=== PATIENT | male | born 1980 | race Hispanic/Latino ===

== ENCOUNTER 2020-02-26 05:45 | Inpatient (IN) | payer SELFPAY ==
[~2020-02-26] VITALS: Ht 170.2 cm; Wt 126.8 kg
[~2020-02-26 05:45] MED LIST: CIPR-1 PO; PRAV20TA4 PO
[2020-02-26] MEDS ORDERED: ZOSYN 3.375GM+NS 50ML 50 ML IV ONE (06:06)
[2020-02-26] MEDS ORDERED: VANCOMYCIN 1GM+NS 250ML 250 ML IV ONE (06:06)
[2020-02-26] MEDS ORDERED: MORPHINE SULFATE 4 MG/1ML SYG ONE (06:13)
[2020-02-26 06:15] LABS: BASOPHILS % (AUTO) 0.2 % (0.0-5.0); HEMATOCRIT 48.8 % (42-54); LYMPHOCYTES % (AUTO) 6.5 % (21.0-51.0); MEAN CORPUSCULAR HEMOGLOBIN 28.5 pg (27.0-33.0); MEAN CORPUSCULAR HGB CONC 34.6 g/dL (32.0-36.0); MEAN CORPUSCULAR VOLUME 82.2 fL (79-99); MONOCYTES % (AUTO) 4.7 % (3.0-13.0); NEUTROPHILS % (AUTO) 88.2 % (40.0-77.0); PLATELET COUNT (AUTO) 342 K/uL (130-400); RED BLOOD CELL COUNT(AUTO) 5.94 MIL/uL (4.50-6.20); RED CELL DISTRIBUTION WIDTH 12.6 % (11.0-15.5); WHITE BLOOD COUNT (AUTO) 27.5 K/uL (4.8-10.8)
[2020-02-26 06:35] LABS: ALBUMIN 3.4 g/dL (3.5-5.0); BILIRUBIN,TOTAL 1.5 mg/dL (0.2-1.0); POTASSIUM 3.7 mmol/L (3.5-5.1); TOTAL PROTEIN, SERUM 9.2 g/dL (6.0-8.3)
[2020-02-26 06:44] LABS: INR 0.9 (0.85-1.15); PARTIAL THROMBOPLASTIN TIME 28.2 SEC (26.3-35.5); PROTHROMBIN TIME 9.8 SEC (9.6-11.6)
[2020-02-26] MEDS ORDERED: INSULIN HUMULIN R 100 UNIT/ML 3ML ONE (06:45)
[2020-02-26] MEDS ORDERED: KETOROLAC TROMETHAMINE 30MG/ML ONE (09:08)
[2020-02-26] MEDS ORDERED: MORPHINE SULFATE 2 MG/ML 1ML SYG IV PRN (10:00)
[2020-02-26] MEDS ORDERED: LACTATED RINGERS 1000ML IV SCH (10:15)
[2020-02-26] MEDS ORDERED: HYDRALAZINE HCL 20 MG/ML VIAL IM PRN (10:15)
[2020-02-26] MEDS ORDERED: VANCOMYCIN PROTOCOL PER PHARMACY IV SCH (10:45)
[2020-02-26] MEDS ORDERED: PHARMACY COMMUNICATION MISC SCH (10:45)
[2020-02-26 11:44] VITALS: BP 152/89
[2020-02-26] MEDS ORDERED: COMPOUND IV REFRIGERATED 1 EACH IVSOLN MISC PRN (12:00)
[2020-02-26] MEDS: HYDROMORPHONE 1 MG/1 ML AMP IV PRN ×2 (12:25→16:25)
[2020-02-26] MEDS: INSULIN HUMULIN R 100 UNIT/ML 3ML SQ SCH ×3 (12:50→20:52)
[2020-02-26] MEDS: CLINDAMYCIN 600 MG/D5% WATER 50 ML IV SCH ×2 (12:52→16:00)
[2020-02-26] MEDS: LACTATED RINGERS 1000ML 1,000 ML IV SCH (12:57)
[2020-02-26] MEDS: VANCOMYCIN 1.5 GM in SODIUM CHLORIDE 0.9% 250 ML IV SCH (13:32)
[2020-02-26 16:00] VITALS: BP 175/102
[2020-02-26] MEDS ORDERED: ACETAMINOPHEN 325 MG TAB PO PRN (16:30)
[2020-02-26] MEDS: METRONIDAZOLE 500MG/100ML BAG 100 ML IV SCH ×2 (16:34→17:46)
[2020-02-26] MEDS: CEFEPIME HCL 2 GM VIAL IVP SCH (16:59)
[2020-02-26 17:21] VITALS: BP 141/60
[2020-02-26] MEDS ORDERED: METO50TA18 PO (18:22)
[2020-02-26] MEDS ORDERED: CITA10TA7 PO (18:22)
[2020-02-26] MEDS ORDERED: METF-446 PO (18:22)
[2020-02-26] MEDS ORDERED: LOSA100T58 PO (18:22)
[2020-02-26 20:00] VITALS: BP 121/74
[2020-02-26] MEDS: FAMOTIDINE/PF 20 MG/2 ML VIAL IV SCH (20:54)
[2020-02-27] VITALS (32 sets, daily range): BP systolic 103–166; BP diastolic 62–96
[2020-02-27] MEDS: VANCOMYCIN 1.5 GM in SODIUM CHLORIDE 0.9% 250 ML IV SCH ×2 (00:28→13:04)
[2020-02-27] MEDS: METRONIDAZOLE 500MG/100ML BAG 100 ML IV SCH ×3 (02:52→17:59)
[2020-02-27 03:57] LABS: BASOPHILS % (AUTO) 0.3 % (0.0-5.0); HEMATOCRIT 44.4 % (42-54); LYMPHOCYTES % (AUTO) 10.3 % (21.0-51.0); MEAN CORPUSCULAR HEMOGLOBIN 28.3 pg (27.0-33.0); MEAN CORPUSCULAR HGB CONC 32.7 g/dL (32.0-36.0); MEAN CORPUSCULAR VOLUME 86.5 fL (79-99); MONOCYTES % (AUTO) 7.1 % (3.0-13.0); PLATELET COUNT (AUTO) 307 K/uL (130-400); RED BLOOD CELL COUNT(AUTO) 5.13 MIL/uL (4.50-6.20); RED CELL DISTRIBUTION WIDTH 12.9 % (11.0-15.5); WHITE BLOOD COUNT (AUTO) 20.6 K/uL (4.8-10.8)
[2020-02-27 04:20] LABS: ALBUMIN 2.7 g/dL (3.5-5.0); BILIRUBIN,TOTAL 1.2 mg/dL (0.2-1.0); CREATININE 0.8 mg/dL (0.5-1.5); POTASSIUM 3.6 mmol/L (3.5-5.1); TOTAL PROTEIN, SERUM 7.9 g/dL (6.0-8.3)
[2020-02-27] MEDS: HYDROMORPHONE 1 MG/1 ML AMP IV PRN ×3 (05:56→09:47)
[2020-02-27] MEDS: INSULIN HUMULIN R 100 UNIT/ML 3ML SQ SCH ×3 (08:29→16:30)
[2020-02-27] MEDS: LACTATED RINGERS 1000ML 1,000 ML IV SCH ×3 (09:03→20:28)
[2020-02-27] MEDS: LOSARTAN 100 MG TABLET PO SCH (09:15)
[2020-02-27] MEDS: CITALOPRAM 20 MG TABLET PO SCH (09:15)
[2020-02-27] MEDS: METOPROLOL TARTRATE 50 MG TAB PO SCH (09:15)
--- NOTE | 2020-02-27 09:15 | NUR ---
DR. DOZIER PAGED CALLED DR. DOZIER TO ASK ABOUT PLAN FOR PROCEDURE. MD PLACED ORDERS TO SCHEDULE PATIENT FOR TODAY. SPOKE TO GUERA CHICAS REGARDING MD ORDER.
--- NOTE | 2020-02-27 09:30 | NUR ---
METOPROLOL NON-ADMIN DID NOT ADMINISTER METOPROLOL 50MG PO DAILY BECAUSE PATIENT UNABLE TO SWALLOW DUE TO JAW PAIN AND JAW SWELLING.
[2020-02-27] MEDS: FAMOTIDINE/PF 20 MG/2 ML VIAL IV SCH ×2 (09:55→20:27)
[2020-02-27] MEDS: CEFEPIME HCL 2 GM VIAL IVP SCH (09:55)
[2020-02-27] MEDS ORDERED: KETAMINE 50MG/ML SYRINGE 50 MG/ML DISP.SYRIN IV ONE (14:58)
[2020-02-27] MEDS ORDERED: LIDOCAINE PF 2% 5ML ABBOJECT ONE (14:59)
[2020-02-27] MEDS ORDERED: SUCCINYLCHOLINE CHLORIDE 20 MG/ML 10 ML VIAL ONE (14:59)
[2020-02-27] MEDS ORDERED: PROPOFOL 10 MG/ML 20ML VIAL IV ONE (15:00)
[2020-02-27] MEDS ORDERED: FENTANYL CITRATE PF 50 MCG/1 ML 2ML VIAL ONE ×2 (15:00→15:53)
[2020-02-27] MEDS ORDERED: MIDAZOLAM HCL 1 MG/ML 2ML VIAL ONE ×2 (15:00→15:52)
[2020-02-27] MEDS ORDERED: ROCURONIUM 10MG/1ML SYR 10 MG/ML ML ONE ×2 (15:00→15:46)
[2020-02-27] MEDS ORDERED: GLYCOPYRROLATE 1 MG/5 ML SYRINGE ONE (15:13)
[2020-02-27] MEDS ORDERED: CEFAZOLIN SODIUM 1 GM VIAL ONE (15:38)
--- NOTE | 2020-02-27 16:01 | NUR ---
Chart Review; Unable to complete initial assessment. Pt is down in PACU for procedure. Contact number on facesheet incorrect as per person answering phone for listed number. Spoke w primary nurse. They do not have any other numbers listed. CM to f/u. Addendum: 02/27/20 at 1603 by PAUL GREWAL CM Amended: Links added.
[2020-02-27] MEDS ORDERED: PROPOFOL 1000 MG/100 ML 100 ML IV ONE ×4 (16:10→21:18)
[2020-02-27 20:35] LABS: ABG BASE EXCESS -6.9 mmol/L (-2.0-3.0); ABG OXYGEN SATURATION 99.2 % (95.0-99.0); ABG PCO2 34 mmHg (35-48)
--- NOTE | 2020-02-27 22:00 | NUR ---
1919 Received patient from OR recovery after report received from Anuj LOVELACE. Patient vented/sedated on Propofol drip. 2029 ABGs drawn on current vent settings. [address] to [address] Anand including labs. Orders received. Gonzalez 16fr inserted. Residual 600 mls clear, yellow urine. Clamped for 1 hour due to high residual. 2199 Serum ketones results called to Dr Anand as ordered.
[2020-02-27] MEDS: PROPOFOL 1000 MG/100 ML 100 ML IV SCH (23:34)
[2020-02-28] VITALS (38 sets, daily range): BP systolic 104–136; BP diastolic 61–89
[2020-02-28] MEDS ORDERED: INSULIN HUMULIN R 100 UNIT/ML 3ML SQ SCH
--- NOTE | 2020-02-28 00:05 | NUR ---
Spoke with hospitalist research contracts supervisor Abbe RN. Reported high glucometer results. Orders received. updated on patient status during 2 calls received yoselyn.
[2020-02-28] MEDS: VANCOMYCIN 1.5 GM in SODIUM CHLORIDE 0.9% 250 ML IV SCH (01:30)
[2020-02-28] MEDS: METRONIDAZOLE 500MG/100ML BAG 100 ML IV SCH ×2 (02:10→09:04)
[2020-02-28] MEDS: PROPOFOL 1000 MG/100 ML 100 ML IV SCH ×7 (02:10→21:22)
[2020-02-28] MEDS: INSULIN HUMULIN R 100 UNIT/ML 3ML SQ SCH ×4 (05:51→23:52)
[2020-02-28] MEDS: FENTANYL 2500MCG+NS 250ML 250 ML IV SCH ×2 (07:35→18:37)
[2020-02-28] MEDS: FAMOTIDINE/PF 20 MG/2 ML VIAL IV SCH ×2 (08:43→21:22)
[2020-02-28] MEDS: VANCOMYCIN 1.75 GM in SODIUM CHLORIDE 0.9% 250 ML IV SCH ×2 (08:43→21:23)
[2020-02-28] MEDS: CEFEPIME HCL 2 GM VIAL IVP SCH (08:43)
[2020-02-28] MEDS: METOPROLOL TARTRATE 50 MG TAB PO SCH (08:44)
[2020-02-28] MEDS: LOSARTAN 100 MG TABLET PO SCH (08:44)
[2020-02-28] MEDS: CITALOPRAM 20 MG TABLET PO SCH (08:44)
[2020-02-28] MEDS: METHYLPREDNISOLONE SOD SUCC 40MG/ML 1ML IVP SCH ×2 (13:52→21:22)
[2020-02-28] MEDS: UNASYN 3GM+NS 100ML 100 ML IV SCH ×3 (13:58→23:37)
[2020-02-28] MEDS: LACTATED RINGERS 1000ML 1,000 ML IV SCH (16:26)
--- NOTE | 2020-02-28 16:31 | NUR ---
DC PLAN PATIENT VENTED. PER NOTES NUMBERS WRONG ON FACE SHEET. CALLED NUMBER NURSE THOUGH WAS FROM SPOUSE WAS A MALE WITH DIFFERENT NAME. CALLED DR. RJOAS OFFICE GOT PERSON TO DONNA[facility] SAMI PACHECO [phone]. CALLED CONFIRMED PATIENT SPOUSE. PATIENT LIVES AT HOME WITH SPOUSE. INDEPENDENT ABLE TO PERFORM ADL'S. NO SERVICES OR DME'S. PLAN IS TO RETURN HOME. SENT INFO TO REGISTRATION TO CHANGE CONTACT NUMBER. Addendum: 02/28/20 at 1634 by ANDREWS SALAZAR RN Amended: Links added.
--- NOTE | 2020-02-28 19:30 | NUR ---
ASSESSMENT PT INTUBATED, SEDATED. IV FLUIDS INFUSING WITHOUT DIFFICULTY. VELA CATHETER TO BEDSIDE DRAINAGE. LEFT SIDE OF SWOLLEN, WITH ORAL PACKING IN PLACE. ASSESSMENT COMPLETED, SEE FLOW SHEET
[2020-02-29] VITALS (37 sets, daily range): BP systolic 108–153; BP diastolic 59–85
[2020-02-29] MEDS: PROPOFOL 1000 MG/100 ML 100 ML IV SCH ×9 (00:13→21:09)
[2020-02-29] MEDS: LACTATED RINGERS 1000ML 1,000 ML IV SCH ×2 (03:04→19:41)
[2020-02-29] MEDS: FENTANYL 2500MCG+NS 250ML 250 ML IV SCH ×3 (03:04→22:59)
[2020-02-29] MEDS: UNASYN 3GM+NS 100ML 100 ML IV SCH ×4 (05:30→23:07)
[2020-02-29 05:55] LABS: BASOPHILS % (AUTO) 0.1 % (0.0-5.0); HEMATOCRIT 45.3 % (42-54); LYMPHOCYTES % (AUTO) 3.5 % (21.0-51.0); MEAN CORPUSCULAR HEMOGLOBIN 28.7 pg (27.0-33.0); MEAN CORPUSCULAR HGB CONC 31.3 g/dL (32.0-36.0); MEAN CORPUSCULAR VOLUME 91.7 fL (79-99); MONOCYTES % (AUTO) 1.8 % (3.0-13.0); NEUTROPHILS % (AUTO) 94.1 % (40.0-77.0); PLATELET COUNT (AUTO) 328 K/uL (130-400); RED BLOOD CELL COUNT(AUTO) 4.94 MIL/uL (4.50-6.20); RED CELL DISTRIBUTION WIDTH 12.9 % (11.0-15.5); WHITE BLOOD COUNT (AUTO) 17.6 K/uL (4.8-10.8)
[2020-02-29 06:20] LABS: ALBUMIN 2.4 g/dL (3.5-5.0); BILIRUBIN,TOTAL 0.5 mg/dL (0.2-1.0); POTASSIUM 4.3 mmol/L (3.5-5.1); TOTAL PROTEIN, SERUM 7.7 g/dL (6.0-8.3)
[2020-02-29] MEDS: INSULIN HUMULIN R 100 UNIT/ML 3ML SQ SCH ×4 (06:28→23:20)
[2020-02-29] MEDS: VANCOMYCIN 1.75 GM in SODIUM CHLORIDE 0.9% 250 ML IV SCH (08:12)
[2020-02-29] MEDS: FAMOTIDINE/PF 20 MG/2 ML VIAL IV SCH ×2 (08:14→19:42)
[2020-02-29] MEDS: METHYLPREDNISOLONE SOD SUCC 40MG/ML 1ML IVP SCH ×2 (08:14→20:28)
[2020-02-29] MEDS: CITALOPRAM 20 MG TABLET PO SCH (08:14)
[2020-02-29] MEDS: LOSARTAN 100 MG TABLET PO SCH (08:15)
[2020-02-29] MEDS: METOPROLOL TARTRATE 50 MG TAB PO SCH (08:15)
[2020-02-29] MEDS ORDERED: INSULIN GLARGINE 100 UNITS/ML 10 ML VIAL SQ SCH (08:45)
--- NOTE | 2020-02-29 09:15 | NUR ---
Paged Dr De León to notify about pending consult, pending MD to return call.
--- NOTE | 2020-02-29 10:20 | NUR ---
Spoke to Mellissa at Dr Barnett's office about request of Dr Brock to have Anesthesia evaluate Larynx with a scope for swelling for possible extubation, pending MD to return call
[2020-02-29] MEDS ORDERED: ROCURONIUM 10MG/1ML SYR 10 MG/ML ML ONE (12:37)
--- NOTE | 2020-02-29 12:40 | NUR ---
GatoDISPENSARY ATTENDANT at bedside to assess patient's Larynx, as per DISPENSARY ATTENDANT swelling it's a lot less compared to 02/27/20. Dr Brock present at nurses station made aware. Dr Brock aware about Dr De León pending consult for possible extubation
--- NOTE | 2020-02-29 17:54 | NUR ---
Called office of Dr De León, no answer, was able to leave message, left patient's information and notified about pending consult, called [phone]
[2020-02-29] MEDS: VANCOMYCIN 2 GM in SODIUM CHLORIDE 0.9% 500ML 500 ML IV SCH (21:54)
[2020-03-01] VITALS (24 sets, daily range): BP systolic 129–185; BP diastolic 71–99
[2020-03-01 03:28] LABS: BASOPHILS % (AUTO) 0.1 % (0.0-5.0); HEMATOCRIT 44.8 % (42-54); LYMPHOCYTES % (AUTO) 6.1 % (21.0-51.0); MEAN CORPUSCULAR HEMOGLOBIN 28.8 pg (27.0-33.0); MEAN CORPUSCULAR HGB CONC 31.5 g/dL (32.0-36.0); MEAN CORPUSCULAR VOLUME 91.4 fL (79-99); NEUTROPHILS % (AUTO) 90.5 % (40.0-77.0); PLATELET COUNT (AUTO) 319 K/uL (130-400); RED CELL DISTRIBUTION WIDTH 13.1 % (11.0-15.5); WHITE BLOOD COUNT (AUTO) 14.5 K/uL (4.8-10.8)
[2020-03-01 03:34] LABS: CREATININE 1.1 mg/dL (0.5-1.5); POTASSIUM 3.7 mmol/L (3.5-5.1)
[2020-03-01] MEDS: PROPOFOL 1000 MG/100 ML 100 ML IV SCH ×2 (03:44→05:56)
[2020-03-01] MEDS: UNASYN 3GM+NS 100ML 100 ML IV SCH ×3 (05:09→18:12)
[2020-03-01] MEDS: INSULIN HUMULIN R 100 UNIT/ML 3ML SQ SCH ×3 (05:22→18:15)
[2020-03-01 05:47] LABS: HEMOGLOBIN A1C 10.9 % (4.0-6.0)
[2020-03-01] MEDS: LACTATED RINGERS 1000ML 1,000 ML IV SCH ×2 (07:35→16:18)
[2020-03-01] MEDS: LOSARTAN 100 MG TABLET PO SCH (08:28)
[2020-03-01] MEDS: METHYLPREDNISOLONE SOD SUCC 40MG/ML 1ML IVP SCH (08:29)
[2020-03-01] MEDS: METOPROLOL TARTRATE 50 MG TAB PO SCH (08:29)
[2020-03-01] MEDS: FAMOTIDINE/PF 20 MG/2 ML VIAL IV SCH ×2 (08:29→22:11)
[2020-03-01] MEDS: CITALOPRAM 20 MG TABLET PO SCH (08:29)
[2020-03-01] MEDS: VANCOMYCIN 2 GM in SODIUM CHLORIDE 0.9% 500ML 500 ML IV SCH ×2 (08:30→22:11)
[2020-03-01] MEDS ORDERED: INSULIN GLARGINE 100 UNITS/ML 10 ML VIAL SQ ONE (09:00)
[2020-03-01] MEDS: FENTANYL 2500MCG+NS 250ML 250 ML IV SCH (09:59)
--- NOTE | 2020-03-01 10:37 | NUR ---
AND PT MOTHER HAVE CALLED ME TWICE TODAY-ASKING FOR MD TO SPEAK TO THEM . I HAVE LET DR STODDARD KNOW TO CALL THEM AND I GAVE HIM 'S PHONE NUMBER. I GAVE MUCH INFO I COULD GIVE IN MY SCOPE OF PRACTICE. REASSURED PT MOTHER THAT I WILL CONTINUE TO HAVE MD'S SPEAK TO THEM.
[2020-03-01] MEDS ORDERED: SODIUM CHLORIDE 0.9% 1000ML 1,000 ML IV ONE (12:49)
[2020-03-01 13:16] LABS: APPEARANCE,URINE TURBID (CLEAR); BILIRUBIN,URINE MODERATE (NEGATIVE); COLOR,URINE YELLOW (YELLOW); GLUCOSE, URINE (UA) >=1000 mg/dL (NEGATIVE); KETONES,URINE >=80 mg/dL (NEGATIVE); LEUKOCYTE ESTERASE ,URINE NEGATIVE (NEGATIVE); NITRATE,URINE NEGATIVE (NEGATIVE); OCCULT BLOOD,URINE NEGATIVE (NEGATIVE); PROTEIN,URINE NEGATIVE (NEGATIVE); UROBILINOGEN,URINE 0.2 mg/dL (0.2-1.0)
[2020-03-01 13:29] LABS: BACTERIA,URINE Rare /HPF (None Seen); WBC,URINE 0-1 /HPF (0-1)
[2020-03-01 13:30] LABS: SQUAMOUS EPITHELIAL CELL,UR Rare /HPF (0-2); YEAST,URINE BUDDING Many /HPF (None Seen)
[2020-03-01] MEDS ORDERED: METOPROLOL TARTRATE 1 MG/ML 5ML VIAL IV ONE (13:35)
--- NOTE | 2020-03-01 13:40 | NUR ---
EXTUBATED-DR KEN AT BEDSIDE. PLACED ON 4L NC
--- NOTE | 2020-03-01 14:06 | NUR ---
RD NOTIFICATION Pt s/p extubation. Notification for Tube Feeding. Recommend initiate continuous Glucerna 1.5 at 20mls. Goal Rate 50mls/hr. Recommend Water Flush at 150mls Q4hrs. Recommendations faxed to Day Pt ([id number]), RN notified. NUTRITION NOTE: propofol discontinued. Hx IDDM. BG 296, Alb 2.4, A1C 10.9. Obesity Class III, BMI 44.8. RD to continue to monitor. Please notify as additional nutrition concerns arise. thank you. Addendum: 03/01/20 at [address] Amended: Links added.
[2020-03-01] MEDS: HYDRALAZINE HCL 20 MG/ML VIAL IV PRN (14:22)
[2020-03-01] MEDS ORDERED: NICARDIPINE IN NACL, ISO-OSM 200 ML IV SCH (16:15)
[2020-03-01] MEDS ORDERED: NICARDIPINE HCL 100 MG in SODIUM CHLORIDE 0.9% 100 ML IV SCH (16:45)
[2020-03-01] MEDS ORDERED: NICARDIPINE 100 MG/100ML IV SCH ×2 (16:45)
--- NOTE | 2020-03-01 18:41 | NUR ---
NARRATIVE NOTE- PT SUCCESSFULLY EXTUBATED TODAY. HE IS RESPONSIVE TO VERBAL STIMULI. MOANS/GARBLED WORDS. AIRWAY PATENT WITH NO OBSTRUCTIVE SIGNS/SYMPTOMS. ORAL PACKING WAS REMOVED INTACT(IODOFORM/MELYSSA ROLL). WAS UPDATED ON STATUS. HAS HAD ELEVATED BP AND TEMP TODAY. I HAVE LET MD'S KNOW. WILL START CARDENE PRN
[2020-03-01] MEDS: ENOXAPARIN SODIUM 40 MG/0.4 ML SYRINGE SQ SCH (20:25)
[2020-03-02] VITALS (27 sets, daily range): BP systolic 137–167; BP diastolic 65–89
[2020-03-02] MEDS: UNASYN 3GM+NS 100ML 100 ML IV SCH ×5 (00:24→23:14)
[2020-03-02] MEDS: INSULIN HUMULIN R 100 UNIT/ML 3ML SQ SCH ×4 (00:29→18:53)
--- NOTE | 2020-03-02 04:16 | NUR ---
Called A OK for pt's temperature of 102.4 Pt was febrile yesterday and blood cultures that were obtained then are still pending. Pt already on Unasyn and Vancomycin. Discussed w/T[employer] ONE READING TEACHER Perri Webber (medical care evaluation specialist for Dr. Jhaveri)
[2020-03-02] MEDS ORDERED: ACETAMINOPHEN ELIXIR 650 MG/20.3 ML UDCUP PO PRN (04:30)
[2020-03-02 05:08] LABS: BASOPHILS % (AUTO) 0.1 % (0.0-5.0); HEMATOCRIT 44.7 % (42-54); MEAN CORPUSCULAR HEMOGLOBIN 28.5 pg (27.0-33.0); MEAN CORPUSCULAR HGB CONC 32.4 g/dL (32.0-36.0); MONOCYTES % (AUTO) 6.5 % (3.0-13.0); NEUTROPHILS % (AUTO) 76.9 % (40.0-77.0); PLATELET COUNT (AUTO) 304 K/uL (130-400); RED BLOOD CELL COUNT(AUTO) 5.08 MIL/uL (4.50-6.20); RED CELL DISTRIBUTION WIDTH 12.6 % (11.0-15.5); WHITE BLOOD COUNT (AUTO) 12.5 K/uL (4.8-10.8)
[2020-03-02 05:44] LABS: CREATININE 0.9 mg/dL (0.5-1.5); POTASSIUM 3.1 mmol/L (3.5-5.1)
[2020-03-02] MEDS ORDERED: LIDOCAINE HCL-MPF 1% 2ML VIAL IV PRN (06:30)
[2020-03-02] MEDS ORDERED: POTASSIUM CHLORIDE 20MEQ/100ML 100 ML IV PRN (06:30)
--- NOTE | 2020-03-02 07:05 | NUR ---
ASSESSMENT Drowsy, arousable with verbal stimulation. Focuses on caregiver and follow commands. Oriented to person, place. Reoriented to day/date/time of day and situation. Pt is in no acute distress. Diminished breath sounds. On NC 4lpm. Abd obese, soft. Denies nausea. NGT in place - clamped - placement verified per routine. ST on tele. Denies chest pain, pressure or tightness. Denies SOB. Generalized edema. VISHAL PIV no longer patent. RAC PIV with brisk blood return. IVF's temporarily on hold. Assessment completed/recorded. Pt assisted with oral care. Pt's questions addressed.
[2020-03-02] MEDS: CITALOPRAM 20 MG TABLET PO SCH (08:39)
[2020-03-02] MEDS: METOPROLOL TARTRATE 50 MG TAB PO SCH (08:40)
[2020-03-02] MEDS: ENOXAPARIN SODIUM 40 MG/0.4 ML SYRINGE SQ SCH (08:40)
[2020-03-02] MEDS: FAMOTIDINE/PF 20 MG/2 ML VIAL IV SCH ×2 (08:40→18:55)
[2020-03-02] MEDS: LOSARTAN 100 MG TABLET PO SCH (08:40)
[2020-03-02] MEDS ORDERED: MAGNESIUM 2GM PREMIX 50ML 50 ML IV SCH (08:45)
[2020-03-02] MEDS: VANCOMYCIN 2 GM in SODIUM CHLORIDE 0.9% 500ML 500 ML IV SCH (09:52)
--- NOTE | 2020-03-02 10:00 | NUR ---
PT CARE Meds administered via NGT after placement verified per routine. NGT remains clamped. Cardene gtt turned off - will observe pt tolerance. Pt repositioned for comfort with HOB @35-degrees. Call light within reach. No complaints voiced by pt.
[2020-03-02] MEDS: LACTATED RINGERS 1000ML 1,000 ML IV SCH ×2 (10:15→15:19)
--- NOTE | 2020-03-02 10:52 | NUR ---
Katharina Vent # [id number] Addendum: 03/02/20 at 1053 by KARRI MORENOLT Amended: Links added.
--- NOTE | 2020-03-02 11:00 | NUR ---
DYSPHAGIA EVAL COMPLETED. +S/S OF ASPIRATION WITH THIN AND SOLID TEXTURES. RECOMMEND NPO, SHORT-TERM ALTERNATE MEANS OF NUTRITION/HYDRATION. RECOMMENDATIONS: 1. RE-EVAL IN 24 HOURS OR WHEN FACIAL EDEMA IMPROVES. Addendum: 03/02/20 at 1327 by INDRA MAST, [facility] Amended: Links added.
[2020-03-02] MEDS: POTASSIUM CHLORIDE 10% ELIXIR 20 MEQ/15 ML UDCUP PO PRN ×3 (11:45→15:19)
--- NOTE | 2020-03-02 11:45 | NUR ---
ASSESSMENT Resting quietly. No evidence of distress. Denies pain. Remains off cardene gtt.
[2020-03-02] MEDS ORDERED: MAGNESIUM 2GM PREMIX 50ML 50 ML IV ONE (15:09)
[2020-03-02] MEDS: VANCOMYCIN 1.75 GM in SODIUM CHLORIDE 0.9% 250 ML IV SCH ×2 (15:19→23:03)
--- NOTE | 2020-03-02 15:40 | NUR ---
MD ROUNDS in to see pt - updated.
--- NOTE | 2020-03-02 16:15 | NUR ---
MD VISIT in to see pt - updated. Order received to downgrade and transfer out of ICU. Pt continues to rest quietly.
[2020-03-02] MEDS: FLUCONAZOLE 200 MG/NS 100 ML 100 ML IV SCH (16:55)
--- NOTE | 2020-03-02 18:30 | NUR ---
PT CARE Attempted to start TF as ordered;however, have unsuccessfully found functioning feeding pumps.
--- NOTE | 2020-03-02 19:00 | NUR ---
SHIFT REPORT Care of pt endorsed to 7P RN. Aware that TF not initiated d/t non-functioning feeding pumps x2.
[2020-03-03] VITALS (7 sets, daily range): BP systolic 159–176; BP diastolic 78–90
[2020-03-03] MEDS: INSULIN HUMULIN R 100 UNIT/ML 3ML SQ SCH ×5 (00:20→23:25)
[2020-03-03 04:48] LABS: BASOPHILS % (AUTO) 0.1 % (0.0-5.0); EOSINOPHILS % (AUTO) 0.3 % (0.0-8.0); HEMATOCRIT 43.4 % (42-54); LYMPHOCYTES % (AUTO) 16.5 % (21.0-51.0); MEAN CORPUSCULAR HEMOGLOBIN 28.4 pg (27.0-33.0); MEAN CORPUSCULAR HGB CONC 32.7 g/dL (32.0-36.0); MEAN CORPUSCULAR VOLUME 86.8 fL (79-99); MONOCYTES % (AUTO) 5.6 % (3.0-13.0); NEUTROPHILS % (AUTO) 76.9 % (40.0-77.0); PLATELET COUNT (AUTO) 259 K/uL (130-400); RED CELL DISTRIBUTION WIDTH 12.7 % (11.0-15.5); WHITE BLOOD COUNT (AUTO) 12.5 K/uL (4.8-10.8)
[2020-03-03] MEDS: HYDRALAZINE HCL 20 MG/ML VIAL IV PRN ×4 (04:51→23:32)
[2020-03-03 05:22] LABS: CARBON DIOXIDE 27 mmol/L (21-32); CHLORIDE 104 mmol/L (101-111); CREATININE 0.8 mg/dL (0.5-1.5); GLOMERULAR FILTR. RATE CALC 116 mL/min (>60); GLUCOSE,RANDOM 246 mg/dL (70-105); POTASSIUM 3.1 mmol/L (3.5-5.1); SODIUM SERUM 142 mmol/L (136-145); UREA NITROGEN, BLOOD 12 mg/dL (7-18)
[2020-03-03] MEDS: UNASYN 3GM+NS 100ML 100 ML IV SCH ×4 (05:28→23:25)
[2020-03-03] MEDS: VANCOMYCIN 1.75 GM in SODIUM CHLORIDE 0.9% 250 ML IV SCH ×2 (05:28→13:35)
[2020-03-03] MEDS: POTASSIUM CHLORIDE 10% ELIXIR 20 MEQ/15 ML UDCUP PO PRN ×3 (05:41→12:08)
[2020-03-03] MEDS: ENOXAPARIN SODIUM 40 MG/0.4 ML SYRINGE SQ SCH (10:03)
[2020-03-03] MEDS: CITALOPRAM 20 MG TABLET PO SCH (10:04)
[2020-03-03] MEDS: FAMOTIDINE/PF 20 MG/2 ML VIAL IV SCH ×2 (10:04→20:33)
[2020-03-03] MEDS: LOSARTAN 100 MG TABLET PO SCH (10:04)
[2020-03-03] MEDS: METOPROLOL TARTRATE 50 MG TAB PO SCH (10:04)
--- NOTE | 2020-03-03 11:40 | NUR ---
DYSPHAGIA RE-EVAL COMPLETED. -S/S OF ASPIRATION. RECOMMEND DIET UPGRADE TO FULL LIQUID DIET TO REACH MECHANICAL SOFT DIET WHEN ABLE TO MASTICATE BILATERALLY. PILLS WHOLE WITH LIQUIDS. COMPENSATORY STRATEGIES IN PLACE PROPHYLAXIS: 1. SMALL BITES AND SIPS Addendum: 03/03/20 at 1322 by INDRA MAST, [facility] ST Amended: Links added.
[2020-03-03] MEDS: LACTATED RINGERS 1000ML 1,000 ML IV SCH (12:04)
[2020-03-03] MEDS: FLUCONAZOLE 200 MG/NS 100 ML 100 ML IV SCH (17:20)
[2020-03-03] MEDS: VANCOMYCIN 2 GM in SODIUM CHLORIDE 0.9% 500ML 500 ML IV SCH (20:53)
[2020-03-04] MEDS: LACTATED RINGERS 1000ML 1,000 ML IV SCH ×2 (01:52→20:10)
[2020-03-04 03:41] VITALS: BP 160/78
[2020-03-04] MEDS: VANCOMYCIN 2 GM in SODIUM CHLORIDE 0.9% 500ML 500 ML IV SCH ×3 (04:07→20:08)
[2020-03-04] MEDS: UNASYN 3GM+NS 100ML 100 ML IV SCH ×4 (06:03→23:40)
[2020-03-04] MEDS: INSULIN HUMULIN R 100 UNIT/ML 3ML SQ SCH ×5 (06:05→23:30)
[2020-03-04 07:22] LABS: HEMATOCRIT 44.2 % (42-54); MEAN CORPUSCULAR HEMOGLOBIN 28.5 pg (27.0-33.0); MEAN CORPUSCULAR HGB CONC 33.3 g/dL (32.0-36.0); MEAN CORPUSCULAR VOLUME 85.8 fL (79-99); RED BLOOD CELL COUNT(AUTO) 5.15 MIL/uL (4.50-6.20); RED CELL DISTRIBUTION WIDTH 12.5 % (11.0-15.5); WHITE BLOOD COUNT (AUTO) 11.3 K/uL (4.8-10.8)
[2020-03-04 07:43] LABS: CREATININE 0.7 mg/dL (0.5-1.5); POTASSIUM 3.1 mmol/L (3.5-5.1)
[2020-03-04 07:51] VITALS: BP 162/84
[2020-03-04] MEDS: LOSARTAN 100 MG TABLET PO SCH (09:28)
[2020-03-04] MEDS: FAMOTIDINE/PF 20 MG/2 ML VIAL IV SCH ×2 (09:28→20:08)
[2020-03-04] MEDS: CITALOPRAM 20 MG TABLET PO SCH (09:28)
[2020-03-04] MEDS: ENOXAPARIN SODIUM 40 MG/0.4 ML SYRINGE SQ SCH (09:29)
[2020-03-04] MEDS: METOPROLOL TARTRATE 50 MG TAB PO SCH (09:29)
[2020-03-04 11:05] VITALS: BP 151/84
[2020-03-04] MEDS: POTASSIUM CHLORIDE 10% ELIXIR 20 MEQ/15 ML UDCUP PO PRN ×3 (11:07→16:49)
[2020-03-04] MEDS ORDERED: PANTOPRAZOLE SODIUM 40 MG TABLET.DR PO SCH (14:55)
[2020-03-04 15:39] VITALS: BP 141/86
[2020-03-04] MEDS: FLUCONAZOLE 200 MG/NS 100 ML 100 ML IV SCH (17:09)
[2020-03-04 19:10] VITALS: BP 167/87
[2020-03-04] MEDS: HYDRALAZINE HCL 20 MG/ML VIAL IV PRN (20:12)
[2020-03-04 23:21] VITALS: BP 128/77
[2020-03-05 01:05] LABS: APPEARANCE,URINE Clear (CLEAR); BILIRUBIN,URINE Negative (NEGATIVE); COLOR,URINE Yellow (YELLOW); GLUCOSE, URINE (UA) TRACE mg/dL (NEGATIVE); KETONES,URINE 15 mg/dL (NEGATIVE); LEUKOCYTE ESTERASE ,URINE Negative (NEGATIVE); NITRATE,URINE Negative (NEGATIVE); OCCULT BLOOD,URINE Negative (NEGATIVE); PH,URINE 7.5 (5.0-8.0); PROTEIN,URINE Negative (NEGATIVE); UROBILINOGEN,URINE 0.2 mg/dL (0.2-1.0)
[2020-03-05 01:30] LABS: BACTERIA,URINE None Seen /HPF (None Seen); RBC,URINE None Seen /HPF (0-1); WBC,URINE None Seen /HPF (0-1)
[2020-03-05 01:31] LABS: SQUAMOUS EPITHELIAL CELL,UR Rare /HPF (0-2)
[2020-03-05 03:26] VITALS: BP 149/75
[2020-03-05] MEDS: VANCOMYCIN 2 GM in SODIUM CHLORIDE 0.9% 500ML 500 ML IV SCH ×3 (03:44→19:57)
[2020-03-05] MEDS: LACTATED RINGERS 1000ML 1,000 ML IV SCH ×2 (04:09→17:56)
[2020-03-05] MEDS: UNASYN 3GM+NS 100ML 100 ML IV SCH ×4 (05:24→23:36)
[2020-03-05] MEDS: INSULIN HUMULIN R 100 UNIT/ML 3ML SQ SCH ×4 (06:10→20:17)
[2020-03-05 06:38] LABS: POTASSIUM 3.1 mmol/L (3.5-5.1)
[2020-03-05] MEDS ORDERED: POTASSIUM CHLORIDE 20 MEQ ERTAB PO ONE (06:53)
[2020-03-05 08:00] VITALS: BP 144/70
[2020-03-05] MEDS: FAMOTIDINE/PF 20 MG/2 ML VIAL IV SCH ×2 (09:15→19:57)
[2020-03-05] MEDS: LOSARTAN 100 MG TABLET PO SCH (09:17)
[2020-03-05] MEDS: ENOXAPARIN SODIUM 40 MG/0.4 ML SYRINGE SQ SCH (09:18)
[2020-03-05] MEDS: PANTOPRAZOLE SODIUM 40 MG TABLET.DR PO SCH (09:18)
[2020-03-05] MEDS: METOPROLOL TARTRATE 50 MG TAB PO SCH (09:18)
[2020-03-05] MEDS: CITALOPRAM 20 MG TABLET PO SCH (09:18)
[2020-03-05] MEDS ORDERED: COMPOUND PO MISCELLANEOUS 1 EACH MISC MISC PRN (10:45)
[2020-03-05] MEDS ORDERED: PHARMACY COMMUNICATION MISC SCH (10:45)
[2020-03-05 11:00] VITALS: BP 158/90
[2020-03-05] MEDS: POTASSIUM CHLORIDE 20 MEQ ERTAB PO PRN ×2 (11:50→15:02)
[2020-03-05] MEDS: MAG HYDROX/AL HYDROX/SIMETH 30 ML, LIDOCAINE HCL 2% VISCOUS 30 ML, DIPHENHYDRAMINE HCL ... PO SCH ×6 (11:51→20:02)
[2020-03-05 16:00] VITALS: BP 152/94
[2020-03-05] MEDS: FLUCONAZOLE 200 MG/NS 100 ML 100 ML IV SCH (16:18)
[2020-03-05] MEDS ORDERED: MAGNESIUM 2GM PREMIX 50ML 50 ML IV PRN (17:15)
[2020-03-05 19:25] VITALS: BP 148/89
[2020-03-05 23:36] VITALS: BP 134/76
[2020-03-06 02:45] VITALS: BP 182/88
[2020-03-06] MEDS: HYDRALAZINE HCL 20 MG/ML VIAL IV PRN (02:50)
[2020-03-06 03:03] VITALS: BP 182/88
[2020-03-06] MEDS: VANCOMYCIN 2 GM in SODIUM CHLORIDE 0.9% 500ML 500 ML IV SCH (03:49)
[2020-03-06 03:51] VITALS: BP 128/80
[2020-03-06] MEDS: UNASYN 3GM+NS 100ML 100 ML IV SCH (05:14)
[2020-03-06 05:51] LABS: BASOPHILS % (AUTO) 0.3 % (0.0-5.0); EOSINOPHILS % (AUTO) 1.8 % (0.0-8.0); LYMPHOCYTES % (AUTO) 22.3 % (21.0-51.0); MEAN CORPUSCULAR HEMOGLOBIN 28.9 pg (27.0-33.0); MEAN CORPUSCULAR HGB CONC 33.3 g/dL (32.0-36.0); MEAN CORPUSCULAR VOLUME 86.7 fL (79-99); MONOCYTES % (AUTO) 7.4 % (3.0-13.0); NEUTROPHILS % (AUTO) 67.5 % (40.0-77.0); PLATELET COUNT (AUTO) 160 K/uL (130-400); RED BLOOD CELL COUNT(AUTO) 4.15 MIL/uL (4.50-6.20); RED CELL DISTRIBUTION WIDTH 12.4 % (11.0-15.5); WHITE BLOOD COUNT (AUTO) 7.6 K/uL (4.8-10.8)
[2020-03-06] MEDS: INSULIN HUMULIN R 100 UNIT/ML 3ML SQ SCH ×2 (06:19→11:37)
[2020-03-06 06:22] LABS: CREATININE 0.9 mg/dL (0.5-1.5)
[2020-03-06 06:30] LABS: POTASSIUM 2.3 mmol/L (3.5-5.1)
[2020-03-06] MEDS: POTASSIUM CHLORIDE 20 MEQ ERTAB PO PRN (06:35)
[2020-03-06] MEDS: LACTATED RINGERS 1000ML 1,000 ML IV SCH (07:38)
[2020-03-06 08:03] VITALS: BP 146/85
[2020-03-06] MEDS: LOSARTAN 100 MG TABLET PO SCH (08:14)
[2020-03-06] MEDS: CITALOPRAM 20 MG TABLET PO SCH (08:15)
[2020-03-06] MEDS: PANTOPRAZOLE SODIUM 40 MG TABLET.DR PO SCH (08:15)
[2020-03-06] MEDS: METOPROLOL TARTRATE 50 MG TAB PO SCH (08:16)
[2020-03-06] MEDS: ENOXAPARIN SODIUM 40 MG/0.4 ML SYRINGE SQ SCH (08:16)
[2020-03-06] MEDS: MAG HYDROX/AL HYDROX/SIMETH 30 ML, LIDOCAINE HCL 2% VISCOUS 30 ML, DIPHENHYDRAMINE HCL ... PO SCH ×3 (08:17)
[2020-03-06] MEDS: FAMOTIDINE/PF 20 MG/2 ML VIAL IV SCH (09:08)
[2020-03-06 11:38] VITALS: BP 132/66
[2020-03-06] MEDS ORDERED: AMOXICILLIN/POTASSIUM CLAV 875-125 TABLET PO SCH (12:30)
--- NOTE | 2020-03-06 14:00 | NUR ---
FOLLOW UP Pt TOLERATING MECHANICAL SOFT, THIN LIQUID DIET. Pt WITH SIGNIFICANT DECREASE OF EDEMA. NO OVERT S/S OF ASPIRATION AT THIS TIME. RECOMMEND DIET UPGRADE TO REGULAR TEXTURE WHEN HEALED FROM SURGICAL INTERVENTION. Addendum: 03/06/20 at 1609 by INDRA MAST, [facility] ST Amended: Links added.
[2020-03-06] MEDS ORDERED: AMOX-429 PO (14:21)
== END 2020-03-06 15:45 | disposition home or self-care (01) | DRG 853 ==
LOC: EDH 05:45 → EDHIP 05:46 → 3CH 11:25 → DAHIP 02-27 19:30 → 3AH 03-02 21:20
PROVIDERS: ADMIT Internal Medicine; ATTEND Internal Medicine
PROC: 0KB10ZZ Excision of Facial Muscle, Open Approach (ICD-10-PCS; principal; 2020-02-26)
PROC: 0KB30ZZ Excision of Left Neck Muscle, Open Approach (ICD-10-PCS; 2020-02-26)
PROC: 5A1945Z Respiratory Ventilation, 24-96 Consecutive Hours (ICD-10-PCS; 2020-02-27)
PROC: 0BH17EZ Insertion of Endotracheal Airway into Trachea, Via Natural or Artificial Opening (ICD-10-PCS; 2020-02-27)
DX: A41.9 Sepsis, unspecified organism (principal); A48.0 Gas gangrene; J96.91 Respiratory failure, unspecified with hypoxia; L02.01 Cutaneous abscess of face; E11.52 Type 2 diabetes mellitus with diabetic peripheral angiopathy with gangrene; Z68.41 Body mass index [BMI] 40.0-44.9, adult; E87.0 Hyperosmolality and hypernatremia; E87.1 Hypo-osmolality and hyponatremia; K12.2 Cellulitis and abscess of mouth; K11.20 Sialoadenitis, unspecified; E11.65 Type 2 diabetes mellitus with hyperglycemia; I10 Essential (primary) hypertension; K04.7 Periapical abscess without sinus; Z20.828 Contact with and (suspected) exposure to other viral communicable diseases; E66.01 Morbid (severe) obesity due to excess calories; E78.5 Hyperlipidemia, unspecified; E87.6 Hypokalemia; F41.9 Anxiety disorder, unspecified; I16.0 Hypertensive urgency; K21.9 Gastro-esophageal reflux disease without esophagitis; M27.2 Inflammatory conditions of jaws; Z79.4 Long term (current) use of insulin; Z88.8 Allergy status to other drugs, medicaments and biological substances; Z82.0 Family history of epilepsy and other diseases of the nervous system; Z82.3 Family history of stroke; Z82.49 Family history of ischemic heart disease and other diseases of the circulatory system; Z82.5 Family history of asthma and other chronic lower respiratory diseases; Z83.3 Family history of diabetes mellitus
CPT/HCPCS: 36415; 36600; 70490; 71045; 80048; 80053; 80202; 81001; 82010; 82435; 82550; 82803; 82947; 82948; 83036; 83605; 83735; 84132; 84145; 84295; 84484; 85018; 85025; 85027; 85610; 85730; 87040; 87070; 87076; 87205; 87426; 92610; 93005; 94002; 94003; 97039; A4344; G0378; J0295; J0330; J0360; J0690; J0692; J1170; J1450; J1650; J1815; J1885; J2001; J2250; J2270; J2543; J2704; J2920; J3010; J3370; J3475; J3490; J7030; J7040; J7050; J7120; U0003

== ENCOUNTER 2020-06-02 22:10 | Inpatient (IN) | payer OTHER, SELFPAY ==
[~2020-06-02] VITALS: Ht 170.2 cm; Wt 125.6 kg
[~2020-06-02 22:10] MED LIST changes: +AMOX-429 PO; -CIPR-1 PO; +CITA10TA7 PO; +LOSA100T58 PO; +METF-446 PO; +METO50TA18 PO
[2020-06-02 22:40] LABS: BASOPHILS % (AUTO) 0.5 % (0.0-5.0); EOSINOPHILS % (AUTO) 2.1 % (0.0-8.0); HEMATOCRIT 47.1 % (42-54); LYMPHOCYTES % (AUTO) 23.6 % (21.0-51.0); MEAN CORPUSCULAR HEMOGLOBIN 28.4 pg (27.0-33.0); MEAN CORPUSCULAR HGB CONC 32.7 g/dL (32.0-36.0); MEAN CORPUSCULAR VOLUME 86.7 fL (79-99); MONOCYTES % (AUTO) 5.5 % (3.0-13.0); PLATELET COUNT (AUTO) 296 K/uL (130-400); RED BLOOD CELL COUNT(AUTO) 5.43 MIL/uL (4.50-6.20); RED CELL DISTRIBUTION WIDTH 12.9 % (11.0-15.5); WHITE BLOOD COUNT (AUTO) 10.6 K/uL (4.8-10.8)
[2020-06-02 22:51] LABS: APPEARANCE,URINE Clear (CLEAR); BILIRUBIN,URINE Negative (NEGATIVE); COLOR,URINE Dark Yellow (YELLOW); GLUCOSE, URINE (UA) >=1000 mg/dL (NEGATIVE); KETONES,URINE Negative (NEGATIVE); LEUKOCYTE ESTERASE ,URINE Negative (NEGATIVE); NITRATE,URINE Negative (NEGATIVE); OCCULT BLOOD,URINE Negative (NEGATIVE); PROTEIN,URINE Negative (NEGATIVE); UROBILINOGEN,URINE 0.2 mg/dL (0.2-1.0)
[2020-06-02 23:09] LABS: ALBUMIN 3.2 g/dL (3.5-5.0); BILIRUBIN,TOTAL 6.4 mg/dL (0.2-1.0); POTASSIUM 4.5 mmol/L (3.5-5.1); TOTAL PROTEIN, SERUM 8.2 g/dL (6.0-8.3)
[2020-06-02] MEDS ORDERED: METOCLOPRAMIDE 10 MG/2 ML VIAL ONE (23:13)
[2020-06-02] MEDS ORDERED: KETOROLAC TROMETHAMINE 30MG/ML ONE (23:13)
[2020-06-02] MEDS ORDERED: ONDANSETRON HCL 4 MG/2 ML VIAL ONE (23:13)
[2020-06-02 23:21] LABS: BACTERIA,URINE None Seen /HPF (None Seen); RBC,URINE 0-1 /HPF (0-1); WBC,URINE 0-1 /HPF (0-1)
[2020-06-02 23:40] LABS: ABG OXYGEN SATURATION 56.6 % (95.0-99.0); BASE EXCESS,VENOUS BLOOD GAS 0.2 (-2.0-3.0); HCO3,VENOUS BLOOD GAS 26.4 (21.0-28.0); PCO2,VENOUS BLOOD GAS 49 (35-48); PH,VENOUS BLOOD GAS 7.354 (7.350-7.450)
[2020-06-03] MEDS ORDERED: ZOSYN 3.375GM+NS 50ML 50 ML IV ONE (00:55)
[2020-06-03] MEDS ORDERED: INSULIN HUMULIN R 100 UNIT/ML 3ML ONE (00:56)
[2020-06-03] MEDS ORDERED: GLUCAGON 1MG KIT 1 MG ML IM PRN (03:00)
[2020-06-03] MEDS ORDERED: DEXTROSE 50%-WATER 50 ML DISP.SYRIN IV PRN (03:00)
[2020-06-03] MEDS ORDERED: NITROGLYCERIN 0.4 MG SL TAB SL PRN (03:00)
[2020-06-03] MEDS ORDERED: MORPHINE SULFATE 4 MG/1ML SYG IV PRN (03:00)
[2020-06-03 03:09] LABS: HEMOGLOBIN A1C 9.1 % (4.0-6.0)
[2020-06-03] MEDS ORDERED: ACETAMINOPHEN 650 MG SUPPOSITORY RC PRN ×2 (03:30)
[2020-06-03] MEDS ORDERED: MORPHINE SULFATE 2 MG/ML 1ML SYG ONE (05:14)
[2020-06-03] MEDS: INSULIN HUMULIN R 100 UNIT/ML 3ML SQ SCH ×3 (05:57→16:30)
[2020-06-03 06:23] LABS: HEMATOCRIT 42.6 % (42-54); MEAN CORPUSCULAR HEMOGLOBIN 28.6 pg (27.0-33.0); MEAN CORPUSCULAR HGB CONC 33.3 g/dL (32.0-36.0); MEAN CORPUSCULAR VOLUME 85.7 fL (79-99); PLATELET COUNT (AUTO) 255 K/uL (130-400); RED BLOOD CELL COUNT(AUTO) 4.97 MIL/uL (4.50-6.20); RED CELL DISTRIBUTION WIDTH 12.6 % (11.0-15.5); WHITE BLOOD COUNT (AUTO) 7.6 K/uL (4.8-10.8)
[2020-06-03] MEDS ORDERED: LANS15CA17 PO (06:29)
[2020-06-03] MEDS ORDERED: INSLAN SQ (06:29)
[2020-06-03] MEDS ORDERED: METO-391 PO (06:29)
[2020-06-03 06:38] LABS: INR 0.94 (0.85-1.15); PARTIAL THROMBOPLASTIN TIME 29.3 SEC (26.3-35.5); PROTHROMBIN TIME 10.2 SEC (9.6-11.6)
[2020-06-03 06:45] LABS: ALBUMIN 2.7 g/dL (3.5-5.0); BILIRUBIN,TOTAL 5.4 mg/dL (0.2-1.0); CREATININE 0.8 mg/dL (0.5-1.5); MAGNESIUM 1.8 mg/dL (1.80-2.40); POTASSIUM 3.9 mmol/L (3.5-5.1); TOTAL PROTEIN, SERUM 7.1 g/dL (6.0-8.3)
[2020-06-03 07:00] VITALS: BP 144/83
[2020-06-03 07:23] LABS: EOSINOPHILS % (MANUAL) 4 % (1-6); LYMPHOCYTES % (MANUAL) 24 % (22-44); MAN.DIFF COMMENT-IMPRESSION MANUAL DIFFERENTIAL; MONOCYTES % (MANUAL) 3 % (2-9); PLATELET MORPHOLOGY COMMENT ADEQUATE; SEGMENTED NEUTROPHILS % 69 % (40-70)
[2020-06-03] MEDS: FAMOTIDINE/PF 20 MG/2 ML VIAL IV SCH ×2 (09:00→20:33)
[2020-06-03] MEDS: ENOXAPARIN SODIUM 40 MG/0.4 ML SYRINGE SQ SCH (09:00)
[2020-06-03 11:00] VITALS: BP 136/80
[2020-06-03] MEDS: ONDANSETRON HCL 4 MG/2 ML VIAL IV PRN ×3 (11:22→23:27)
[2020-06-03] MEDS: MORPHINE SULFATE 2 MG/ML 1ML SYG IV PRN (11:22)
[2020-06-03 11:30] LABS: AMPHET/METH SCREEN,URINE NEGATIVE (NEGATIVE); BARBITURATE SCREEN, URINE NEGATIVE (NEGATIVE); BENZODIAZEPINES SCREEN,URINE NEGATIVE (NEGATIVE); CANNABINOID SCREEN,URINE NEGATIVE (NEGATIVE); COCAINE SCREEN,URINE NEGATIVE (NEGATIVE); OPIATE SCREEN,URINE POSITIVE (NEGATIVE); PHENCYCLIDINE SCREEN,URINE NEGATIVE (NEGATIVE)
--- NOTE | 2020-06-03 11:37 | NUR ---
CM NOTE/DRUG ABUSE PACKET PATIENT TESTED POSITIVE FOR MARIJUANA. MET WITH PATIENT AT BEDSIDE, PATIENT OKAYED FAMILY AT BEDSIDE FOR CONVERSATION. PATIENT MADE AWARE OF POSITIVE RESULT. DRUG ABUSE PACKET WITH INFORMATION ON DRUG REHAB GIVEN TO PATIENT. PER PATIENT, FEELS THIS IS NOT AN ISSUE AN WILL NOT STOP CONSUMING MARIJUANA. PATIENT VERBALIZED UNDERSTANDING OF PACKET AND WANTED ME TO PLACE IT ON COUNTER. PRIMARY NURSE, KRISTIN LOVELACE, MADE AWARE.
--- NOTE | 2020-06-03 12:20 | NUR ---
PT CLAUSTRO/ PT REFUSED/ DIDNT WANT SEDATION EITHER FOR MRI/RN MARCO NOTIFIED
--- NOTE | 2020-06-03 13:33 | NUR ---
DESPITE ATTEMPTS TO OBTAIN AN MRCP, THE PT STATES HE IS TOO CLAUSTROPHOBIC TO PERFORM THIS TEST EVEN WITH MEDICATION, DR MCADAMS NOTIFIED.
[2020-06-03 15:00] VITALS: BP 159/91
--- NOTE | 2020-06-03 17:26 | NUR ---
CM NOTE/IA MET WITH PATIENT AT BEDSIDE. PER PATIENT, LIVES WITH SPOUSE, IS INDEPENDENT WITH ADLS, NO USE OF PROVIDER OR HOME HEALTH, EMPLOYED, DRIVES, NO DME, AND FEEL SAFE TO RETURN HOME. PATIENT GIVEN SELF REFERRAL/MEDICAL PACKETS WELL GOOD RX CARD, PT VERBALIZED UNDERSTANDING OF INFORMATION.
[2020-06-03] MEDS: PROMETHAZINE HCL 25 MG/ML 1ML AMPULE IM PRN (17:59)
[2020-06-03 20:30] VITALS: BP 163/91
[2020-06-03] MEDS: LACTATED RINGERS 1000ML 1,000 ML IV SCH ×2 (22:39→23:00)
[2020-06-03 23:44] VITALS: BP 145/87
[2020-06-04] MEDS: INSULIN HUMULIN R 100 UNIT/ML 3ML SQ SCH ×5 (00:34→22:12)
[2020-06-04 03:54] VITALS: BP 148/92
[2020-06-04 06:16] LABS: HEMATOCRIT 45.5 % (42-54); MEAN CORPUSCULAR HEMOGLOBIN 27.8 pg (27.0-33.0); MEAN CORPUSCULAR HGB CONC 32.3 g/dL (32.0-36.0); MEAN CORPUSCULAR VOLUME 86.2 fL (79-99); RED BLOOD CELL COUNT(AUTO) 5.28 MIL/uL (4.50-6.20); RED CELL DISTRIBUTION WIDTH 12.7 % (11.0-15.5); WHITE BLOOD COUNT (AUTO) 7.6 K/uL (4.8-10.8)
[2020-06-04 06:44] LABS: ALBUMIN 2.8 g/dL (3.5-5.0); BILIRUBIN,TOTAL 4.6 mg/dL (0.2-1.0); CREATININE 0.7 mg/dL (0.5-1.5); TOTAL PROTEIN, SERUM 7.4 g/dL (6.0-8.3)
[2020-06-04 07:00] VITALS: BP 144/88
[2020-06-04] MEDS: FAMOTIDINE/PF 20 MG/2 ML VIAL IV SCH ×2 (08:40→19:35)
[2020-06-04] MEDS: ENOXAPARIN SODIUM 40 MG/0.4 ML SYRINGE SQ SCH (08:40)
[2020-06-04] MEDS: PROMETHAZINE HCL 25 MG/ML 1ML AMPULE IM PRN (10:35)
[2020-06-04 11:00] VITALS: BP 159/90
[2020-06-04 15:00] VITALS: BP 141/93
[2020-06-04 19:32] VITALS: BP 129/73
[2020-06-04] MEDS: LACTATED RINGERS 1000ML 1,000 ML IV SCH (19:35)
[2020-06-04] MEDS: MORPHINE SULFATE 2 MG/ML 1ML SYG IV PRN (22:25)
[2020-06-05 03:41] VITALS: BP 164/99
[2020-06-05 05:17] LABS: BASOPHILS % (AUTO) 0.8 % (0.0-5.0); EOSINOPHILS % (AUTO) 2.7 % (0.0-8.0); HEMATOCRIT 45.4 % (42-54); LYMPHOCYTES % (AUTO) 25.7 % (21.0-51.0); MEAN CORPUSCULAR HEMOGLOBIN 27.9 pg (27.0-33.0); MEAN CORPUSCULAR HGB CONC 32.4 g/dL (32.0-36.0); MEAN CORPUSCULAR VOLUME 86.3 fL (79-99); NEUTROPHILS % (AUTO) 63.5 % (40.0-77.0); PLATELET COUNT (AUTO) 266 K/uL (130-400); RED BLOOD CELL COUNT(AUTO) 5.26 MIL/uL (4.50-6.20); RED CELL DISTRIBUTION WIDTH 12.7 % (11.0-15.5); WHITE BLOOD COUNT (AUTO) 7.9 K/uL (4.8-10.8)
[2020-06-05 05:52] LABS: ALBUMIN 2.8 g/dL (3.5-5.0); BILIRUBIN,TOTAL 3.8 mg/dL (0.2-1.0); CREATININE 0.7 mg/dL (0.5-1.5); POTASSIUM 3.9 mmol/L (3.5-5.1); TOTAL PROTEIN, SERUM 7.4 g/dL (6.0-8.3)
[2020-06-05] MEDS: INSULIN HUMULIN R 100 UNIT/ML 3ML SQ SCH ×4 (06:06→21:00)
[2020-06-05] MEDS: LACTATED RINGERS 1000ML 1,000 ML IV SCH ×2 (06:08→16:42)
--- NOTE | 2020-06-05 06:31 | NUR ---
PAGED ONCALL LIPASE [phone]. INCREASED FROM [phone] PENDING CALL BACK FROM JOSSE OGLESBY MD.
--- NOTE | 2020-06-05 06:52 | NUR ---
PAGE RETURNED SPOKE TO KATELIN LARSEN NP. INFORMED HER OF ELEVATED LIPASE. TRADE PROMOTION ANALYST ORDERED FOR PT TO BE NPO WILL PLACE ORDER IN [facility].
[2020-06-05 08:00] VITALS: BP 154/94
[2020-06-05] MEDS: FAMOTIDINE/PF 20 MG/2 ML VIAL IV SCH ×2 (08:49→21:47)
[2020-06-05] MEDS: ENOXAPARIN SODIUM 40 MG/0.4 ML SYRINGE SQ SCH (08:56)
[2020-06-05] MEDS: ONDANSETRON HCL 4 MG/2 ML VIAL IV PRN ×2 (10:30→21:47)
[2020-06-05 11:09] VITALS: BP 148/93
--- NOTE | 2020-06-05 12:50 | NUR ---
DR. MCADAMS CALLED NO ANSWER LEFT VOICEMAIL RE; CT RESULTS AND PLANS FOR ANY PROCEDURES, CALL BACK NUMBER PROVIDED.
[2020-06-05 15:57] VITALS: BP 146/93
[2020-06-05] MEDS ORDERED: LORAZEPAM 2 MG/ML 1 ML VIAL IVP ONE (16:15)
--- NOTE | 2020-06-05 19:30 | NUR ---
DR. PEMA MCADAMS SPOKE TO PT VIA ZOOM CONFERENCE. NO FURTHER QUESTIONS FROM PT AT THIS TIME. ERCP, AND AM LABS ORDERED.
[2020-06-05 20:00] VITALS: BP 158/96
[2020-06-05] MEDS: MORPHINE SULFATE 2 MG/ML 1ML SYG IV PRN (21:47)
--- NOTE | 2020-06-05 23:31 | NUR ---
RADIO INTERFERENCE EXPERT MADE AWARE OF ERCP ORDER BY DR. MCADAMS.
[2020-06-06] VITALS (27 sets, daily range): BP systolic 130–167; BP diastolic 81–105
[2020-06-06 05:35] LABS: BASOPHILS % (AUTO) 0.6 % (0.0-5.0); EOSINOPHILS % (AUTO) 2.9 % (0.0-8.0); HEMATOCRIT 44.9 % (42-54); LYMPHOCYTES % (AUTO) 30.5 % (21.0-51.0); MEAN CORPUSCULAR HGB CONC 32.5 g/dL (32.0-36.0); NEUTROPHILS % (AUTO) 57.8 % (40.0-77.0); PLATELET COUNT (AUTO) 253 K/uL (130-400); RED BLOOD CELL COUNT(AUTO) 5.22 MIL/uL (4.50-6.20); RED CELL DISTRIBUTION WIDTH 12.5 % (11.0-15.5)
[2020-06-06 05:45] LABS: INR 0.99 (0.85-1.15); PARTIAL THROMBOPLASTIN TIME 31.1 SEC (26.3-35.5); PROTHROMBIN TIME 10.7 SEC (9.6-11.6)
[2020-06-06 05:58] LABS: ALBUMIN 2.8 g/dL (3.5-5.0); BILIRUBIN,DIRECT 1.4 mg/dL (0.0-0.3); BILIRUBIN,TOTAL 2.8 mg/dL (0.2-1.0); CREATININE 0.8 mg/dL (0.5-1.5); POTASSIUM 4.1 mmol/L (3.5-5.1); TOTAL PROTEIN, SERUM 7.4 g/dL (6.0-8.3)
[2020-06-06] MEDS: LACTATED RINGERS 1000ML 1,000 ML IV SCH ×3 (06:43→21:34)
[2020-06-06] MEDS: INSULIN HUMULIN R 100 UNIT/ML 3ML SQ SCH ×4 (06:44→21:31)
--- NOTE | 2020-06-06 08:27 | NUR ---
consent for ercp signed and placed in the chart.
[2020-06-06] MEDS: ENOXAPARIN SODIUM 40 MG/0.4 ML SYRINGE SQ SCH (09:00)
[2020-06-06] MEDS: FAMOTIDINE/PF 20 MG/2 ML VIAL IV SCH ×2 (09:08→21:31)
[2020-06-06] MEDS ORDERED: IOHEXOL-350 50ML VIAL IV ONE (13:30)
[2020-06-06] MEDS ORDERED: FENTANYL CITRATE PF 50 MCG/1 ML 2ML VIAL ONE (13:38)
[2020-06-06] MEDS ORDERED: MIDAZOLAM HCL 1 MG/ML 2ML VIAL ONE (13:38)
[2020-06-06] MEDS ORDERED: ROCURONIUM 10MG/1ML SYR 10 MG/ML ML ONE (13:40)
[2020-06-06] MEDS ORDERED: INDOMETHACIN 50 MG SUPP.RECT RC SCH ×2 (14:30→16:45)
[2020-06-06] MEDS ORDERED: LEVOFLOXACIN 500 MG/D5W 100 ML 100 ML ONE (14:45)
[2020-06-06] MEDS: ONDANSETRON HCL 4 MG/2 ML VIAL IV PRN (15:41)
[2020-06-06] MEDS: PROMETHAZINE HCL 25 MG/ML 1ML AMPULE IM PRN (18:34)
[2020-06-06] MEDS: MORPHINE SULFATE 2 MG/ML 1ML SYG IV PRN (23:04)
[2020-06-07] VITALS (25 sets, daily range): BP systolic 121–198; BP diastolic 78–97
[2020-06-07] MEDS: LACTATED RINGERS 1000ML 1,000 ML IV SCH ×4 (03:04→20:47)
[2020-06-07 05:14] LABS: BASOPHILS % (AUTO) 0.7 % (0.0-5.0); EOSINOPHILS % (AUTO) 2.9 % (0.0-8.0); HEMATOCRIT 41.8 % (42-54); LYMPHOCYTES % (AUTO) 34.6 % (21.0-51.0); MEAN CORPUSCULAR HEMOGLOBIN 28.2 pg (27.0-33.0); MEAN CORPUSCULAR VOLUME 85.3 fL (79-99); NEUTROPHILS % (AUTO) 53.5 % (40.0-77.0); PLATELET COUNT (AUTO) 235 K/uL (130-400); RED CELL DISTRIBUTION WIDTH 12.4 % (11.0-15.5); WHITE BLOOD COUNT (AUTO) 6.8 K/uL (4.8-10.8)
[2020-06-07 05:35] LABS: CREATININE 0.7 mg/dL (0.5-1.5); POTASSIUM 3.7 mmol/L (3.5-5.1)
[2020-06-07 06:04] LABS: ALBUMIN 2.7 g/dL (3.5-5.0); BILIRUBIN,DIRECT 1.6 mg/dL (0.0-0.3); BILIRUBIN,TOTAL 2.8 mg/dL (0.2-1.0); TOTAL PROTEIN, SERUM 6.7 g/dL (6.0-8.3)
[2020-06-07] MEDS: INSULIN HUMULIN R 100 UNIT/ML 3ML SQ SCH ×3 (07:30→19:56)
[2020-06-07] MEDS: ENOXAPARIN SODIUM 40 MG/0.4 ML SYRINGE SQ SCH (09:00)
[2020-06-07] MEDS: FAMOTIDINE/PF 20 MG/2 ML VIAL IV SCH ×2 (10:22→19:32)
[2020-06-07] MEDS ORDERED: SODIUM CHLORIDE 0.9% 1000ML 1,000 ML IV ONE (16:02)
[2020-06-07] MEDS ORDERED: FENTANYL CITRATE PF 50 MCG/1 ML 5ML AMP IV ONE (16:03)
[2020-06-07] MEDS ORDERED: PROPOFOL 10 MG/ML 20ML VIAL IV ONE (16:03)
[2020-06-07] MEDS ORDERED: SUCCINYLCHOLINE CHLORIDE 20 MG/ML 10 ML VIAL ONE (16:03)
[2020-06-07] MEDS ORDERED: MIDAZOLAM HCL 1 MG/ML 2ML VIAL ONE (16:03)
[2020-06-07] MEDS ORDERED: ONDANSETRON HCL 4 MG/2 ML VIAL ONE ×2 (16:04→17:49)
[2020-06-07] MEDS ORDERED: CEFAZOLIN SODIUM 1 GM VIAL ONE (16:07)
[2020-06-07] MEDS ORDERED: BUPIVACAINE/PF 0.5% 30ML VIAL ONE (16:24)
[2020-06-07] MEDS ORDERED: EPHEDRINE SULFATE 50 MG/ML AMPULE ONE (16:44)
[2020-06-07] MEDS ORDERED: FENTANYL CITRATE PF 50 MCG/1 ML 2ML VIAL ONE (17:15)
[2020-06-07] MEDS ORDERED: GLYCOPYRROLATE 1 MG/5 ML SYRINGE ONE (17:24)
[2020-06-07] MEDS ORDERED: NEOSTIGMINE 5MG/5ML SYR IV ONE (17:25)
[2020-06-07] MEDS: LABETALOL HCL 5 MG/ML 20ML VIAL IV ONE ×2 (17:45→17:47)
[2020-06-07] MEDS ORDERED: MEPERIDINE-PF 25 MG/ML SYG ONE (17:54)
--- NOTE | 2020-06-07 18:30 | NUR ---
NOTE RETURNED FROM SURGERY AT THIS TIME. S/P LAPAROSCOPIC CHOLECYSTECTOMY BY DR MCLAUGHLIN. 5 SMALL ABDOMINAL INCISIONS PRESENT WITH BAND AID DRESSINGS D/I. SLIGHT NAUSEA REPORTED. WAS MEDICATED FOR NAUSE AND PAIN AND ALSO GIVEN DOSE OF TRANDATE IV FOR HIGH BP. BP ON ARRIVAL 130'S SYSTOLIC. STILL A LITTLE NAUSEATED. DENIES JACKSON AND STATES HE FEELS LIKE PASSING GAS OR HAVING AND BM OR BURP. I TOLD HIM ONCE HE GETS VS POST FOR A FEW HOURS HE CAN GO FOR A WALK, I ENCOURAGED HIM TO DO SO. HE WILL TRY IT. AT HIS SIDE.
[2020-06-07] MEDS: PROMETHAZINE HCL 25 MG/ML 1ML AMPULE IM PRN (19:40)
[2020-06-08] VITALS (7 sets, daily range): BP systolic 126–147; BP diastolic 70–87
[2020-06-08] MEDS: LACTATED RINGERS 1000ML 1,000 ML IV SCH ×3 (02:35→23:29)
[2020-06-08] MEDS: MORPHINE SULFATE 2 MG/ML 1ML SYG IV PRN (03:12)
[2020-06-08] MEDS ORDERED: ACETAMINOPHEN-CODEINE 300/30MG TAB PO PRN (03:45)
[2020-06-08 05:28] LABS: BASOPHILS % (AUTO) 0.2 % (0.0-5.0); EOSINOPHILS % (AUTO) 1.9 % (0.0-8.0); HEMATOCRIT 42.1 % (42-54); LYMPHOCYTES % (AUTO) 9.8 % (21.0-51.0); MEAN CORPUSCULAR HEMOGLOBIN 27.8 pg (27.0-33.0); MEAN CORPUSCULAR HGB CONC 32.3 g/dL (32.0-36.0); MEAN CORPUSCULAR VOLUME 85.9 fL (79-99); MONOCYTES % (AUTO) 3.2 % (3.0-13.0); NEUTROPHILS % (AUTO) 84.7 % (40.0-77.0); PLATELET COUNT (AUTO) 267 K/uL (130-400); RED CELL DISTRIBUTION WIDTH 12.4 % (11.0-15.5); WHITE BLOOD COUNT (AUTO) 9.8 K/uL (4.8-10.8)
[2020-06-08] MEDS: INSULIN HUMULIN R 100 UNIT/ML 3ML SQ SCH ×4 (05:50→19:51)
[2020-06-08 05:59] LABS: ALBUMIN 2.8 g/dL (3.5-5.0); BILIRUBIN,DIRECT 0.9 mg/dL (0.0-0.3); BILIRUBIN,TOTAL 1.8 mg/dL (0.2-1.0); CREATININE 0.8 mg/dL (0.5-1.5); POTASSIUM 4.2 mmol/L (3.5-5.1); TOTAL PROTEIN, SERUM 7.4 g/dL (6.0-8.3)
[2020-06-08] MEDS: ENOXAPARIN SODIUM 40 MG/0.4 ML SYRINGE SQ SCH (08:22)
[2020-06-08] MEDS: FAMOTIDINE/PF 20 MG/2 ML VIAL IV SCH ×2 (08:22→19:22)
[2020-06-09 03:40] VITALS: BP 129/75
[2020-06-09] MEDS: LACTATED RINGERS 1000ML 1,000 ML IV SCH (05:17)
[2020-06-09] MEDS: INSULIN HUMULIN R 100 UNIT/ML 3ML SQ SCH ×2 (05:42→12:22)
[2020-06-09 05:45] LABS: BASOPHILS % (AUTO) 0.5 % (0.0-5.0); EOSINOPHILS % (AUTO) 2.1 % (0.0-8.0); HEMATOCRIT 42.3 % (42-54); LYMPHOCYTES % (AUTO) 39.9 % (21.0-51.0); MEAN CORPUSCULAR HEMOGLOBIN 27.8 pg (27.0-33.0); MEAN CORPUSCULAR HGB CONC 32.2 g/dL (32.0-36.0); MEAN CORPUSCULAR VOLUME 86.5 fL (79-99); MONOCYTES % (AUTO) 7.3 % (3.0-13.0); PLATELET COUNT (AUTO) 254 K/uL (130-400); RED BLOOD CELL COUNT(AUTO) 4.89 MIL/uL (4.50-6.20); RED CELL DISTRIBUTION WIDTH 12.5 % (11.0-15.5); WHITE BLOOD COUNT (AUTO) 8.5 K/uL (4.8-10.8)
[2020-06-09 06:05] LABS: ALBUMIN 2.8 g/dL (3.5-5.0); BILIRUBIN,DIRECT 0.8 mg/dL (0.0-0.3); BILIRUBIN,TOTAL 1.5 mg/dL (0.2-1.0); CREATININE 0.9 mg/dL (0.5-1.5); POTASSIUM 3.6 mmol/L (3.5-5.1); TOTAL PROTEIN, SERUM 7.2 g/dL (6.0-8.3)
[2020-06-09] MEDS: FAMOTIDINE/PF 20 MG/2 ML VIAL IV SCH (07:51)
[2020-06-09] MEDS: ENOXAPARIN SODIUM 40 MG/0.4 ML SYRINGE SQ SCH (07:51)
[2020-06-09 08:00] VITALS: BP 146/95
[2020-06-09] MEDS ORDERED: IBUP-2077 PO (08:19)
[2020-06-09] MEDS ORDERED: INSULIN GLARGINE 100 UNITS/ML 10 ML VIAL SQ SCH (12:00)
[2020-06-09] MEDS ORDERED: METFORMIN HCL 500 MG TABLET PO SCH (12:00)
--- NOTE | 2020-06-09 12:47 | NUR ---
Discharge teaching completed at the bedside w pt and visitor at side. Emphasis on dx, s/s to monitor for, when to seek emergency care vs dial 911. Emphasis on incision care, activity, and diet. Written rx for tylenol #3 given to pt, and electronic rx for ibuprofen 800 was e-transmitted to pt's pharmacy of choice. Discussed route, frequency, and purpose of medications, as well as side effects and adverse effects. Appts set up for Dr. Reece on Friday and Dr Newton on 06/28. PIV removed, tip intact, dressed w sterile 2x2 and band aid after hemostasis achieved. Pt voiced understanding of all instructions, all questions addressed. Wheeled [place] front lobby [place] [facility] [place] via private car. Pt in stable condition at time of discharge.
== END 2020-06-09 12:50 | disposition home or self-care (01) | DRG 417 ==
LOC: EDH 22:10 → EDHIP 22:11 → 4AH 06-03 04:57
PROVIDERS: ADMIT Family Medicine; ATTEND Family Medicine
PROC: 0F798ZZ Dilation of Common Bile Duct, Via Natural or Artificial Opening Endoscopic (ICD-10-PCS; 2020-06-06)
PROC: BF101ZZ Fluoroscopy of Bile Ducts using Low Osmolar Contrast (ICD-10-PCS; 2020-06-06)
PROC: 0FT44ZZ Resection of Gallbladder, Percutaneous Endoscopic Approach (ICD-10-PCS; principal; 2020-06-07 16:13)
DX: K81.0 Acute cholecystitis (principal); K85.10 Biliary acute pancreatitis without necrosis or infection; Z68.41 Body mass index [BMI] 40.0-44.9, adult; K59.00 Constipation, unspecified; E66.01 Morbid (severe) obesity due to excess calories; E11.65 Type 2 diabetes mellitus with hyperglycemia; E78.5 Hyperlipidemia, unspecified; I10 Essential (primary) hypertension; K76.0 Fatty (change of) liver, not elsewhere classified; K82.8 Other specified diseases of gallbladder; Z80.0 Family history of malignant neoplasm of digestive organs; Z82.0 Family history of epilepsy and other diseases of the nervous system; Z82.3 Family history of stroke; Z82.49 Family history of ischemic heart disease and other diseases of the circulatory system; Z82.5 Family history of asthma and other chronic lower respiratory diseases; Z83.3 Family history of diabetes mellitus; Z87.891 Personal history of nicotine dependence; F41.9 Anxiety disorder, unspecified; K21.9 Gastro-esophageal reflux disease without esophagitis; F19.10 Other psychoactive substance abuse, uncomplicated; Z20.828 Contact with and (suspected) exposure to other viral communicable diseases
CPT/HCPCS: 36415; 36600; 43262; 43264; 74176; 74181; 74330; 76705; 80048; 80053; 80061; 80076; 80305; 81001; 82010; 82150; 82248; 82803; 82948; 83036; 83605; 83690; 83735; 85025; 85027; 85610; 85730; 87426; 93005; A4606; C1769; C1773; G0378; J0330; J0690; J1650; J1815; J1885; J1956; J2060; J2175; J2250; J2270; J2405; J2543; J2550; J2704; J2710; J2765; J3010; J3490; J7030; J7120; Q9967; U0003

== ENCOUNTER 2020-10-17 08:21 | Inpatient (IN) | payer SELFPAY ==
[~2020-10-17] VITALS: Ht 170.2 cm; Wt 91.7 kg
[~2020-10-17 08:21] MED LIST changes: -AMOX-429 PO; +IBUP-2077 PO; +INSLAN SQ; +LANS15CA17 PO; +METO-391 PO; -METO50TA18 PO; -PRAV20TA4 PO
[2020-10-17] MEDS ORDERED: VANCOMYCIN 1GM+NS 250ML 250 ML IV ONE (08:33)
[2020-10-17] MEDS ORDERED: TETANUS/DIPHTHERIA TOXOID [ADULT] 0.5 ML VIAL IM ONE (08:33)
[2020-10-17] MEDS ORDERED: KETOROLAC TROMETHAMINE 30MG/ML ONE (08:39)
[2020-10-17 08:42] LABS: BASOPHILS % (AUTO) 0.5 % (0.0-5.0); EOSINOPHILS % (AUTO) 1.1 % (0.0-8.0); LYMPHOCYTES % (AUTO) 11.2 % (21.0-51.0); MEAN CORPUSCULAR HEMOGLOBIN 27.4 pg (27.0-33.0); MEAN CORPUSCULAR HGB CONC 33.4 g/dL (32.0-36.0); MEAN CORPUSCULAR VOLUME 82.1 fL (79-99); MONOCYTES % (AUTO) 4.2 % (3.0-13.0); NEUTROPHILS % (AUTO) 82.5 % (40.0-77.0); PLATELET COUNT (AUTO) 405 K/uL (130-400); RED BLOOD CELL COUNT(AUTO) 5.36 MIL/uL (4.50-6.20); RED CELL DISTRIBUTION WIDTH 12.5 % (11.0-15.5); WHITE BLOOD COUNT (AUTO) 20.1 K/uL (4.8-10.8)
[2020-10-17 08:53] LABS: APPEARANCE,URINE Clear (CLEAR); BILIRUBIN,URINE Negative (NEGATIVE); COLOR,URINE Yellow (YELLOW); GLUCOSE, URINE (UA) >=1000 mg/dL (NEGATIVE); KETONES,URINE Trace mg/dL (NEGATIVE); LEUKOCYTE ESTERASE ,URINE Small (NEGATIVE); NITRATE,URINE Negative (NEGATIVE); OCCULT BLOOD,URINE Negative (NEGATIVE); PROTEIN,URINE Negative (NEGATIVE); UROBILINOGEN,URINE 0.2 mg/dL (0.2-1.0)
[2020-10-17 08:55] LABS: BACTERIA,URINE Rare /HPF (None Seen); RBC,URINE 0-1 /HPF (0-1); SQUAMOUS EPITHELIAL CELL,UR Rare /HPF (0-2)
[2020-10-17 09:00] LABS: AMPHET/METH SCREEN,URINE NEGATIVE (NEGATIVE); BARBITURATE SCREEN, URINE NEGATIVE (NEGATIVE); BENZODIAZEPINES SCREEN,URINE NEGATIVE (NEGATIVE); CANNABINOID SCREEN,URINE NEGATIVE (NEGATIVE); COCAINE SCREEN,URINE NEGATIVE (NEGATIVE); OPIATE SCREEN,URINE NEGATIVE (NEGATIVE); PHENCYCLIDINE SCREEN,URINE NEGATIVE (NEGATIVE)
[2020-10-17 09:02] LABS: ALBUMIN 2.8 g/dL (3.5-5.0); BILIRUBIN,TOTAL 0.9 mg/dL (0.2-1.0); CREATININE 0.9 mg/dL (0.5-1.5); POTASSIUM 4.2 mmol/L (3.5-5.1); TOTAL PROTEIN, SERUM 8.4 g/dL (6.0-8.3)
[2020-10-17] MEDS ORDERED: LACTULOSE 20 GM/30 ML UDCUP PO PRN (09:15)
[2020-10-17] MEDS ORDERED: ACETAMINOPHEN 325 MG TAB PO PRN (09:15)
[2020-10-17] MEDS ORDERED: MORPHINE SULFATE 2 MG/ML 1ML SYG IV PRN (09:15)
[2020-10-17] MEDS ORDERED: VANCOMYCIN PROTOCOL PER PHARMACY IV SCH (09:15)
[2020-10-17] MEDS ORDERED: INSULIN HUMULIN R 100 UNIT/ML 3ML ONE ×2 (09:42→12:15)
[2020-10-17 09:46] LABS: HEMOGLOBIN A1C 11.7 % (4.0-6.0)
[2020-10-17] MEDS ORDERED: ONDANSETRON HCL 4 MG/2 ML VIAL ONE (09:52)
[2020-10-17] MEDS ORDERED: MORPHINE SULFATE 4 MG/1ML SYG ONE (09:53)
[2020-10-17] MEDS: INSULIN HUMULIN R 100 UNIT/ML 3ML SQ SCH ×3 (11:30→21:37)
[2020-10-17] MEDS ORDERED: ZOSYN 3.375GM+NS 50ML 50 ML IV ONE (12:15)
[2020-10-17] MEDS: ZOSYN 3.375GM+NS 50ML 50 ML IV SCH ×2 (13:00→21:22)
[2020-10-17] MEDS ORDERED: VANCOMYCIN 1.75 GM in SODIUM CHLORIDE 0.9% 250 ML IV SCH (14:27)
[2020-10-17] MEDS ORDERED: COMPOUND IV REFRIGERATED 1 EACH IVSOLN MISC PRN (14:30)
[2020-10-17] MEDS ORDERED: ACETAMINOPHEN 325 MG TAB ONE (16:29)
[2020-10-17] MEDS: ONDANSETRON HCL 4 MG/2 ML VIAL IV PRN ×2 (18:41→23:59)
[2020-10-17] MEDS ORDERED: LORAZEPAM 2 MG/ML 1 ML VIAL IVP PRN (19:15)
[2020-10-17] MEDS: FAMOTIDINE 20MG TAB 20 MG TAB PO SCH (21:21)
[2020-10-17] MEDS: ACETAMINOPHEN 325 MG TAB PO PRN (21:36)
[2020-10-17] MEDS: VANCOMYCIN 1.25 GM in SODIUM CHLORIDE 0.9% 250 ML IV SCH (22:00)
[2020-10-17 23:35] VITALS: BP 137/82
[2020-10-18] VITALS (25 sets, daily range): BP systolic 104–167; BP diastolic 55–93
[2020-10-18] MEDS ORDERED: VANCOMYCIN 1GM+NS 250ML 500 ML IV ONE (01:05)
[2020-10-18] MEDS: INSULIN GLARGINE 100 UNITS/ML 10 ML VIAL SQ SCH ×2 (01:24→20:57)
[2020-10-18] MEDS: VANCOMYCIN 1.25 GM in SODIUM CHLORIDE 0.9% 250 ML IV SCH (01:35)
[2020-10-18] MEDS: ONDANSETRON HCL 4 MG/2 ML VIAL IV PRN ×2 (05:39→22:38)
[2020-10-18 05:46] LABS: BASOPHILS % (AUTO) 0.4 % (0.0-5.0); EOSINOPHILS % (AUTO) 0.2 % (0.0-8.0); HEMATOCRIT 41.6 % (42-54); LYMPHOCYTES % (AUTO) 7.6 % (21.0-51.0); MEAN CORPUSCULAR HEMOGLOBIN 27.9 pg (27.0-33.0); MEAN CORPUSCULAR HGB CONC 33.7 g/dL (32.0-36.0); MONOCYTES % (AUTO) 5.3 % (3.0-13.0); NEUTROPHILS % (AUTO) 85.9 % (40.0-77.0); PLATELET COUNT (AUTO) 357 K/uL (130-400); RED BLOOD CELL COUNT(AUTO) 5.01 MIL/uL (4.50-6.20); RED CELL DISTRIBUTION WIDTH 12.6 % (11.0-15.5); WHITE BLOOD COUNT (AUTO) 22.5 K/uL (4.8-10.8)
[2020-10-18 06:05] LABS: CREATININE 1.6 mg/dL (0.5-1.5); POTASSIUM 4.5 mmol/L (3.5-5.1)
[2020-10-18] MEDS: INSULIN HUMULIN R 100 UNIT/ML 3ML SQ SCH ×7 (07:30→20:56)
[2020-10-18] MEDS: ZOSYN 3.375GM+NS 50ML 50 ML IV SCH ×2 (07:36→13:20)
[2020-10-18] MEDS: FAMOTIDINE 20MG TAB 20 MG TAB PO SCH ×2 (07:50→20:55)
[2020-10-18] MEDS: ENOXAPARIN SODIUM 40 MG/0.4 ML SYRINGE SQ SCH (07:50)
[2020-10-18] MEDS ORDERED: ONDANSETRON HCL 4 MG/2 ML VIAL IVP SCH (08:00)
[2020-10-18] MEDS ORDERED: VANCOMYCIN 1GM+NS 250ML 250 ML IV ONE (08:15)
[2020-10-18] MEDS ORDERED: VANCOMYCIN 1.25 GM in SODIUM CHLORIDE 0.9% 250 ML IV SCH (09:30)
[2020-10-18] MEDS ORDERED: METOCLOPRAMIDE 10 MG/2 ML VIAL ONE (10:13)
[2020-10-18] MEDS ORDERED: SCOPOLAMINE HYDROBROMIDE 1 EACH ADH..PATCH TD ONE (10:13)
[2020-10-18] MEDS ORDERED: DEXAMETHASONE SOD PHOSPHATE 10MG/ML 1ML VIAL ONE (10:24)
[2020-10-18] MEDS ORDERED: PROPOFOL 10 MG/ML 20ML VIAL IV ONE ×2 (10:24→10:49)
[2020-10-18] MEDS ORDERED: LIDOCAINE HCL MPF 1% 5ML VIAL ONE (10:24)
[2020-10-18] MEDS ORDERED: ONDANSETRON HCL 4 MG/2 ML VIAL ONE (10:24)
[2020-10-18] MEDS ORDERED: FENTANYL CITRATE PF 50 MCG/1 ML 2ML VIAL ONE ×2 (10:25→10:53)
[2020-10-18] MEDS ORDERED: MIDAZOLAM HCL 1 MG/ML 2ML VIAL ONE (10:27)
[2020-10-18] MEDS ORDERED: LIDOCAINE 1%-EPI 1:100,000 20 ML VIAL IJ ONE (10:41)
[2020-10-18] MEDS ORDERED: CEFAZOLIN SODIUM 1 GM VIAL ONE (10:41)
[2020-10-18] MEDS ORDERED: BUPIVACAINE/PF 0.5% 30ML VIAL ONE (10:41)
[2020-10-18] MEDS ORDERED: OXYCODONE/ACETAMIN 5/325MG TAB PO PRN (13:00)
[2020-10-18] MEDS: VANCOMYCIN 1GM+NS 250ML 250 ML IV SCH (19:05)
[2020-10-19] VITALS (7 sets, daily range): BP systolic 121–187; BP diastolic 81–99
[2020-10-19] MEDS: VANCOMYCIN 1GM+NS 250ML 250 ML IV SCH ×3 (00:29→17:32)
[2020-10-19] MEDS ORDERED: LABETALOL HCL 5 MG/ML 20ML VIAL IV PRN (04:15)
[2020-10-19] MEDS ORDERED: LABETALOL HCL 5 MG/ML 20ML VIAL IV ONE (04:17)
[2020-10-19 05:07] LABS: BASOPHILS % (AUTO) 0.5 % (0.0-5.0); EOSINOPHILS % (AUTO) 0.4 % (0.0-8.0); HEMATOCRIT 38.9 % (42-54); MEAN CORPUSCULAR HEMOGLOBIN 27.8 pg (27.0-33.0); MEAN CORPUSCULAR HGB CONC 33.2 g/dL (32.0-36.0); MEAN CORPUSCULAR VOLUME 83.8 fL (79-99); NEUTROPHILS % (AUTO) 79.6 % (40.0-77.0); PLATELET COUNT (AUTO) 342 K/uL (130-400); RED BLOOD CELL COUNT(AUTO) 4.64 MIL/uL (4.50-6.20); RED CELL DISTRIBUTION WIDTH 12.8 % (11.0-15.5); WHITE BLOOD COUNT (AUTO) 18.3 K/uL (4.8-10.8)
[2020-10-19 05:19] LABS: CREATININE 1.7 mg/dL (0.5-1.5); POTASSIUM 3.7 mmol/L (3.5-5.1)
[2020-10-19] MEDS: INSULIN HUMULIN R 100 UNIT/ML 3ML SQ SCH ×7 (07:23→21:13)
[2020-10-19] MEDS: INSULIN GLARGINE 100 UNITS/ML 10 ML VIAL SQ SCH (07:25)
[2020-10-19] MEDS: ONDANSETRON HCL 4 MG/2 ML VIAL IV PRN ×2 (07:26→13:36)
[2020-10-19] MEDS ORDERED: INSULIN HUMULIN R 100 UNIT/ML 3ML SQ SCH (07:30)
[2020-10-19] MEDS ORDERED: METFORMIN HCL 500 MG TABLET PO SCH (08:00)
[2020-10-19] MEDS ORDERED: INSULIN GLARGINE 100 UNITS/ML 10 ML VIAL SQ SCH ×2 (09:00→21:00)
[2020-10-19] MEDS: LANSOPRAZOLE 15 MG CAPSULE.DR PO SCH (10:08)
[2020-10-19] MEDS: ENOXAPARIN SODIUM 40 MG/0.4 ML SYRINGE SQ SCH (10:08)
[2020-10-19] MEDS: METOPROLOL SUCCINATE 50 MG TAB.SR.24H PO SCH (10:09)
[2020-10-19] MEDS: CITALOPRAM 20 MG TABLET PO SCH (10:09)
[2020-10-19] MEDS: LOSARTAN 100 MG TABLET PO SCH (10:09)
[2020-10-19] MEDS: ACETAMINOPHEN 325 MG TAB PO PRN ×2 (10:16→17:51)
[2020-10-19] MEDS ORDERED: HONEY 1 APPL/ML TUBE TP ONE ×2 (12:40→13:32)
[2020-10-19] MEDS: METOCLOPRAMIDE 10 MG/2 ML VIAL IVP SCH (20:38)
[2020-10-20 00:46] VITALS: BP 131/80
[2020-10-20] MEDS: VANCOMYCIN 1GM+NS 250ML 250 ML IV SCH (01:05)
[2020-10-20 04:24] VITALS: BP 150/89
[2020-10-20 05:14] LABS: BASOPHILS % (AUTO) 0.5 % (0.0-5.0); EOSINOPHILS % (AUTO) 1.2 % (0.0-8.0); HEMATOCRIT 38.7 % (42-54); LYMPHOCYTES % (AUTO) 17.2 % (21.0-51.0); MEAN CORPUSCULAR HEMOGLOBIN 27.3 pg (27.0-33.0); MEAN CORPUSCULAR VOLUME 85.1 fL (79-99); MONOCYTES % (AUTO) 5.6 % (3.0-13.0); NEUTROPHILS % (AUTO) 75.1 % (40.0-77.0); PLATELET COUNT (AUTO) 377 K/uL (130-400); RED BLOOD CELL COUNT(AUTO) 4.55 MIL/uL (4.50-6.20); RED CELL DISTRIBUTION WIDTH 12.7 % (11.0-15.5); WHITE BLOOD COUNT (AUTO) 14.5 K/uL (4.8-10.8)
[2020-10-20 05:25] LABS: CREATININE 1.6 mg/dL (0.5-1.5); CRP QUANTITATIVE 96.2 mg/L (0.00-9.0)
[2020-10-20] MEDS: INSULIN HUMULIN R 100 UNIT/ML 3ML SQ SCH ×4 (05:44→12:10)
[2020-10-20 06:12] LABS: ERYTHROCYTE SEDIMENTATION RATE 93 MM/HR (0-15)
[2020-10-20] MEDS: METOCLOPRAMIDE 10 MG/2 ML VIAL IVP SCH ×2 (06:27→12:11)
[2020-10-20] MEDS: INSULIN GLARGINE 100 UNITS/ML 10 ML VIAL SQ SCH (06:28)
[2020-10-20] MEDS ORDERED: KETOROLAC TROMETHAMINE 15MG/ML IV PRN (06:30)
[2020-10-20] MEDS: SODIUM CHLORIDE 0.9% 1000ML 1,000 ML IV SCH ×2 (07:22→14:26)
[2020-10-20] MEDS: CEFAZOLIN SODIUM 1 GM VIAL IVP SCH ×2 (07:22→14:26)
[2020-10-20 07:49] VITALS: BP 156/92
[2020-10-20] MEDS ORDERED: HONEY 1 APPL/ML TUBE TP SCH (09:00)
[2020-10-20] MEDS: METOPROLOL SUCCINATE 50 MG TAB.SR.24H PO SCH (10:07)
[2020-10-20] MEDS: LOSARTAN 100 MG TABLET PO SCH (10:07)
[2020-10-20] MEDS: CITALOPRAM 20 MG TABLET PO SCH (10:07)
[2020-10-20] MEDS: LANSOPRAZOLE 15 MG CAPSULE.DR PO SCH (10:07)
[2020-10-20] MEDS: ENOXAPARIN SODIUM 40 MG/0.4 ML SYRINGE SQ SCH (10:08)
[2020-10-20 11:31] VITALS: BP 173/90
[2020-10-20] MEDS ORDERED: METO50TA9 PO (13:33)
[2020-10-20] MEDS ORDERED: INSU500I SQ (13:33)
[2020-10-20] MEDS ORDERED: METO5 PO (13:33)
[2020-10-20] MEDS ORDERED: INSU3INS3 SQ (13:33)
[2020-10-20] MEDS ORDERED: CEFU500T67 PO (13:33)
== END 2020-10-20 16:25 | disposition home or self-care (01) | DRG 854 ==
LOC: EDH 08:21 → EDHIP 08:22 → 3BH 17:37
PROVIDERS: ADMIT Family Medicine; ATTEND Family Medicine
PROC: 3E0234Z Introduction of Serum, Toxoid and Vaccine into Muscle, Percutaneous Approach (ICD-10-PCS; 2020-10-17)
PROC: 0W9F0ZZ Drainage of Abdominal Wall, Open Approach (ICD-10-PCS; principal; 2020-10-18 10:50)
DX: A41.9 Sepsis, unspecified organism (principal); L02.211 Cutaneous abscess of abdominal wall; L03.311 Cellulitis of abdominal wall; E11.65 Type 2 diabetes mellitus with hyperglycemia; I10 Essential (primary) hypertension; E66.01 Morbid (severe) obesity due to excess calories; A49.01 Methicillin susceptible Staphylococcus aureus infection, unspecified site; K21.9 Gastro-esophageal reflux disease without esophagitis; F41.9 Anxiety disorder, unspecified; F17.210 Nicotine dependence, cigarettes, uncomplicated; L53.9 Erythematous condition, unspecified; E11.21 Type 2 diabetes mellitus with diabetic nephropathy; E78.5 Hyperlipidemia, unspecified; Z68.31 Body mass index [BMI] 31.0-31.9, adult; Z90.49 Acquired absence of other specified parts of digestive tract; Z88.8 Allergy status to other drugs, medicaments and biological substances; Z79.4 Long term (current) use of insulin; Z91.19 Patient's noncompliance with other medical treatment and regimen; Z23 Encounter for immunization; Z83.3 Family history of diabetes mellitus; Z82.3 Family history of stroke; Z82.5 Family history of asthma and other chronic lower respiratory diseases; Z82.0 Family history of epilepsy and other diseases of the nervous system; Z82.49 Family history of ischemic heart disease and other diseases of the circulatory system
CPT/HCPCS: 36415; 74176; 80048; 80053; 80202; 80305; 81001; 82948; 83036; 83605; 84145; 85025; 85651; 86140; 87040; 87070; 87076; 87077; 87186; 87205; 90714; A4606; A6407; G0378; J0690; J1100; J1650; J1815; J1885; J2250; J2270; J2405; J2543; J2704; J2765; J3010; J3370; J3490; J7030; J7050

== ENCOUNTER 2021-01-30 09:58 | Emergency (ER) | payer OTHER ==
[~2021-01-30] VITALS: Ht 170.2 cm; Wt 129.3 kg
[~2021-01-30 09:58] MED LIST changes: +CEFU500T67 PO; -IBUP-2077 PO; -INSLAN SQ; +INSU3INS3 SQ; +INSU500I SQ; -METO-391 PO; +METO5 PO; +METO50TA9 PO
== END 2021-01-30 10:04 | disposition left against medical advice (07) ==
LOC: EDH 09:58
DX: R09.81 Nasal congestion (principal); Z53.21 Procedure and treatment not carried out due to patient leaving prior to being seen by health care provider

== ENCOUNTER 2021-04-11 23:30 | Inpatient (IN) | payer OTHER ==
[~2021-04-11] VITALS: Ht 170.2 cm; Wt 140.6 kg
[2021-04-11 23:42] VITALS: BP 145/83
[2021-04-12] MEDS ORDERED: CEFTRIAXONE 2GM VIAL IJ ONE
[2021-04-12 00:19] LABS: BASOPHILS % (AUTO) 0.3 % (0.0-5.0); EOSINOPHILS % (AUTO) 1.2 % (0.0-8.0); HEMATOCRIT 39.5 % (42-54); LYMPHOCYTES % (AUTO) 8.9 % (21.0-51.0); MEAN CORPUSCULAR HEMOGLOBIN 27.9 pg (27.0-33.0); MEAN CORPUSCULAR HGB CONC 33.7 g/dL (32.0-36.0); MEAN CORPUSCULAR VOLUME 82.8 fL (79-99); MONOCYTES % (AUTO) 6.1 % (3.0-13.0); NEUTROPHILS % (AUTO) 82.9 % (40.0-77.0); PLATELET COUNT (AUTO) 294 K/uL (130-400); RED BLOOD CELL COUNT(AUTO) 4.77 MIL/uL (4.50-6.20); RED CELL DISTRIBUTION WIDTH 13.2 % (11.0-15.5); WHITE BLOOD COUNT (AUTO) 25.2 K/uL (4.8-10.8)
[2021-04-12] MEDS ORDERED: ONDANSETRON 4MG INJ ONE (00:19)
[2021-04-12 00:34] LABS: ALBUMIN 2.7 g/dL (3.5-5.0); BILIRUBIN,TOTAL 1.1 mg/dL (0.2-1.0); CREATININE 1.1 mg/dL (0.5-1.5); POTASSIUM 3.9 mmol/L (3.5-5.1); TOTAL PROTEIN, SERUM 7.5 g/dL (6.0-8.3)
[2021-04-12] MEDS ORDERED: INSULIN HUMULIN R 100 UNIT/ML 3ML ONE (00:50)
[2021-04-12] MEDS ORDERED: INSULIN HUMULIN R 100 UNIT/ML 3ML IV ONE (01:00)
[2021-04-12] MEDS ORDERED: ONDANSETRON 4MG INJ IVP ONE (01:00)
[2021-04-12] MEDS ORDERED: 0.9%NACL 1000ML 1,000 ML IV ONE (01:00)
[2021-04-12] MEDS ORDERED: VANCOMYCIN 1G/250ML KIT 250 ML IV ONE (02:00)
[2021-04-12] MEDS ORDERED: VANCOMYCIN 1G VIAL IVPB ONE (02:00)
[2021-04-12] MEDS ORDERED: 0.9% NACL 250ML IVPB ONE (02:00)
[2021-04-12] MEDS ORDERED: MAG/ALUM/SIMETH 30 ML UDCUP PO PRN (03:00)
[2021-04-12] MEDS ORDERED: ACETAMINOPHEN 325 MG TAB PO PRN (03:00)
[2021-04-12] MEDS ORDERED: NITROGLYCERIN 0.4 MG SL TAB SL PRN (03:00)
[2021-04-12] MEDS ORDERED: ZOLPIDEM TARTRATE 5 MG TAB PO PRN (03:00)
[2021-04-12] MEDS ORDERED: LACTULOSE 20 GM/30 ML UDCUP PO PRN (03:00)
[2021-04-12 03:47] LABS: ABG BASE EXCESS -1.6 mmol/L (-2.0-3.0); ABG HCO3 21.7 mmol/L (21.0-28.0); ABG OXYGEN SATURATION 96.7 % (95.0-99.0); ABG PCO2 33 mmHg (35-48)
[2021-04-12] MEDS ORDERED: KETOROLAC 60 MG VIAL (30MG/ML) IV ONE (04:30)
[2021-04-12] MEDS ORDERED: KETOROLAC 60 MG VIAL (30MG/ML) ONE (04:32)
[2021-04-12] MEDS ORDERED: INSLAN SQ (04:35)
[2021-04-12] MEDS ORDERED: PHARMACY COMMUNICATION MISC SCH (05:00)
[2021-04-12] MEDS: ZOSYN 3.375GM+NS 50ML 50 ML IV SCH ×2 (05:24→13:25)
[2021-04-12] MEDS ORDERED: KETOROLAC 60 MG VIAL (30MG/ML) IM ONE (05:30)
[2021-04-12 05:55] LABS: HEMATOCRIT 38.9 % (42-54); MEAN CORPUSCULAR HEMOGLOBIN 28.2 pg (27.0-33.0); MEAN CORPUSCULAR HGB CONC 33.7 g/dL (32.0-36.0); MEAN CORPUSCULAR VOLUME 83.7 fL (79-99); RED BLOOD CELL COUNT(AUTO) 4.65 MIL/uL (4.50-6.20); RED CELL DISTRIBUTION WIDTH 13.3 % (11.0-15.5); WHITE BLOOD COUNT (AUTO) 25.2 K/uL (4.8-10.8)
[2021-04-12] MEDS: INSULIN HUMULIN R 100 UNIT/ML 3ML SQ SCH ×7 (07:30→20:20)
[2021-04-12 08:43] VITALS: BP 167/99
[2021-04-12] MEDS ORDERED: LOSARTAN 25 MG TABLET PO SCH (09:00)
[2021-04-12] MEDS: FAMOTIDINE 20MG TAB PO SCH ×2 (09:36→20:18)
[2021-04-12] MEDS: METOPROLOL SUCCINATE 50 MG TAB.SR.24H PO SCH (09:36)
[2021-04-12] MEDS: ENOXAPARIN SODIUM 40 MG/0.4 ML SYRINGE SQ SCH (09:37)
[2021-04-12 11:15] VITALS: BP 145/87
[2021-04-12 15:57] VITALS: BP 170/93
[2021-04-12] MEDS ORDERED: KETOROLAC 30MG VIAL (30MG/ML) ONE (16:26)
[2021-04-12] MEDS ORDERED: KETOROLAC 30MG VIAL (30MG/ML) IV ONE (16:30)
[2021-04-12 20:00] VITALS: BP 148/96
[2021-04-12] MEDS: INSULIN GLARGINE 100 UNITS/ML 10 ML VIAL SQ SCH (20:20)
[2021-04-12] MEDS: ONDANSETRON 4MG INJ IV PRN (22:43)
[2021-04-13 00:35] VITALS: BP 154/96
[2021-04-13 04:32] VITALS: BP 165/96
[2021-04-13] MEDS: ACETAMINOPHEN 325 MG TAB PO PRN (04:54)
[2021-04-13 05:14] LABS: BASOPHILS % (AUTO) 0.3 % (0.0-5.0); EOSINOPHILS % (AUTO) 0.5 % (0.0-8.0); HEMATOCRIT 40.7 % (42-54); LYMPHOCYTES % (AUTO) 7.1 % (21.0-51.0); MEAN CORPUSCULAR HEMOGLOBIN 27.8 pg (27.0-33.0); MEAN CORPUSCULAR HGB CONC 32.7 g/dL (32.0-36.0); MEAN CORPUSCULAR VOLUME 85.1 fL (79-99); MONOCYTES % (AUTO) 6.6 % (3.0-13.0); NEUTROPHILS % (AUTO) 84.9 % (40.0-77.0); PLATELET COUNT (AUTO) 291 K/uL (130-400); RED BLOOD CELL COUNT(AUTO) 4.78 MIL/uL (4.50-6.20); RED CELL DISTRIBUTION WIDTH 13.1 % (11.0-15.5); WHITE BLOOD COUNT (AUTO) 23.6 K/uL (4.8-10.8)
[2021-04-13 05:21] LABS: HEMOGLOBIN A1C 9.9 % (4.0-6.0)
[2021-04-13 05:31] LABS: CREATININE 0.9 mg/dL (0.5-1.5); MAGNESIUM 1.6 mg/dL (1.80-2.40); PHOSPHORUS 2.5 mg/dL (2.5-4.9); POTASSIUM 3.8 mmol/L (3.5-5.1)
[2021-04-13 05:39] LABS: CRP QUANTITATIVE 363.7 mg/L (0.00-9.0)
[2021-04-13] MEDS: ONDANSETRON 4MG INJ IV PRN ×3 (06:33→17:38)
[2021-04-13] MEDS: INSULIN HUMULIN R 100 UNIT/ML 3ML SQ SCH ×6 (06:59→21:55)
[2021-04-13] MEDS ORDERED: HYDROCODONE/ACETAMINOPHEN 5/325 MG TAB PO PRN (07:00)
[2021-04-13] MEDS ORDERED: MAGNESIUM 2GM PREMIX 50ML 50 ML IV PRN (07:00)
[2021-04-13] MEDS ORDERED: HYDROMORPHONE 0.5 MG SYG (0.5MG/0.5ML) IVP PRN (07:00)
[2021-04-13 08:00] VITALS: BP 131/79
[2021-04-13] MEDS: LOSARTAN 25 MG TABLET PO SCH (09:03)
[2021-04-13] MEDS: METOPROLOL SUCCINATE 50 MG TAB.SR.24H PO SCH (09:03)
[2021-04-13] MEDS: FAMOTIDINE 20MG TAB PO SCH ×2 (09:03→21:21)
[2021-04-13] MEDS: ENOXAPARIN SODIUM 40 MG/0.4 ML SYRINGE SQ SCH (09:06)
[2021-04-13] MEDS ORDERED: VANCOMYCIN PROTOCOL PER PHARMACY IV PRN (10:00)
[2021-04-13] MEDS ORDERED: COMPOUND IV REFRIGERATED 1 EACH IVSOLN MISC PRN (11:00)
[2021-04-13] MEDS ORDERED: INSULIN HUMULIN R 100 UNIT/ML 3ML SQ SCH (11:30)
[2021-04-13 11:52] VITALS: BP 125/74
[2021-04-13] MEDS: CEFAZOLIN SODIUM 1 GM VIAL IVP SCH ×2 (12:23→18:25)
[2021-04-13] MEDS: VANCOMYCIN 1.5GM/NS 250ML IV SCH ×4 (15:10→21:21)
[2021-04-13 16:00] VITALS: BP 160/91
[2021-04-13] MEDS: HYDROCODONE/ACETAMINOPHEN 5/325 MG TAB PO PRN (18:25)
[2021-04-13 19:57] VITALS: BP 147/80
[2021-04-13] MEDS: INSULIN GLARGINE 100 UNITS/ML 10 ML VIAL SQ SCH (21:56)
[2021-04-13] MEDS: METOCLOPRAMIDE 10 MG/2 ML VIAL IVP SCH (22:01)
[2021-04-14 00:02] VITALS: BP 148/95
[2021-04-14] MEDS: CEFAZOLIN SODIUM 1 GM VIAL IVP SCH ×3 (02:17→17:33)
[2021-04-14] MEDS: HYDROCODONE/ACETAMINOPHEN 5/325 MG TAB PO PRN (02:33)
[2021-04-14 03:36] VITALS: BP 143/80
[2021-04-14] MEDS: VANCOMYCIN 1.5GM/NS 250ML IV SCH ×4 (05:43→14:49)
[2021-04-14 05:46] LABS: BASOPHILS % (AUTO) 0.3 % (0.0-5.0); HEMATOCRIT 38.5 % (42-54); LYMPHOCYTES % (AUTO) 7.9 % (21.0-51.0); MEAN CORPUSCULAR HEMOGLOBIN 27.4 pg (27.0-33.0); MEAN CORPUSCULAR HGB CONC 32.2 g/dL (32.0-36.0); MEAN CORPUSCULAR VOLUME 85.2 fL (79-99); MONOCYTES % (AUTO) 7.8 % (3.0-13.0); NEUTROPHILS % (AUTO) 82.5 % (40.0-77.0); PLATELET COUNT (AUTO) 300 K/uL (130-400); RED BLOOD CELL COUNT(AUTO) 4.52 MIL/uL (4.50-6.20); RED CELL DISTRIBUTION WIDTH 13.1 % (11.0-15.5)
[2021-04-14 06:32] LABS: ALBUMIN 2.2 g/dL (3.5-5.0); BILIRUBIN,TOTAL 0.7 mg/dL (0.2-1.0); CREATININE 0.9 mg/dL (0.5-1.5); POTASSIUM 3.7 mmol/L (3.5-5.1)
[2021-04-14 06:50] LABS: ERYTHROCYTE SEDIMENTATION RATE 78 MM/HR (0-15)
[2021-04-14] MEDS: INSULIN HUMULIN R 100 UNIT/ML 3ML SQ SCH ×7 (07:26→20:13)
[2021-04-14 08:00] VITALS: BP 150/89
[2021-04-14] MEDS: METOCLOPRAMIDE 10 MG/2 ML VIAL IVP SCH ×2 (09:00→10:26)
[2021-04-14] MEDS: LOSARTAN 25 MG TABLET PO SCH (10:25)
[2021-04-14] MEDS: ENOXAPARIN SODIUM 40 MG/0.4 ML SYRINGE SQ SCH (10:26)
[2021-04-14] MEDS: FAMOTIDINE 20MG TAB PO SCH ×2 (10:26→20:28)
[2021-04-14] MEDS: METOPROLOL SUCCINATE 50 MG TAB.SR.24H PO SCH (10:26)
[2021-04-14] MEDS: ACETAMINOPHEN 325 MG TAB PO PRN ×3 (11:00→22:07)
[2021-04-14] MEDS: ONDANSETRON 4MG INJ IV PRN ×2 (11:00→17:45)
[2021-04-14 12:00] VITALS: BP 155/94
[2021-04-14 16:00] VITALS: BP 158/95
[2021-04-14 20:00] VITALS: BP 169/98
[2021-04-14] MEDS: INSULIN GLARGINE 100 UNITS/ML 10 ML VIAL SQ SCH (20:15)
[2021-04-14] MEDS ORDERED: METOCLOPRAMIDE 10 MG/2 ML VIAL IVP PRN (21:00)
[2021-04-14] MEDS ORDERED: VANCOMYCIN 2GM/500ML NS IV ONE ×2 (21:00)
[2021-04-15] VITALS (21 sets, daily range): BP systolic 110–170; BP diastolic 74–100
[2021-04-15] MEDS ORDERED: HYDRALAZINE 20MG/ML VIAL ONE (00:17)
[2021-04-15] MEDS ORDERED: HYDRALAZINE 20MG/ML VIAL IV PRN (00:30)
[2021-04-15] MEDS: CEFAZOLIN SODIUM 1 GM VIAL IVP SCH ×3 (02:03→18:05)
[2021-04-15] MEDS: ONDANSETRON 4MG INJ IV PRN ×2 (02:15→14:01)
[2021-04-15] MEDS: VANCOMYCIN 1.5GM/NS 250ML IV SCH ×6 (05:00→21:25)
[2021-04-15 06:00] LABS: BASOPHILS % (AUTO) 0.4 % (0.0-5.0); EOSINOPHILS % (AUTO) 2.3 % (0.0-8.0); HEMATOCRIT 42.2 % (42-54); LYMPHOCYTES % (AUTO) 11.8 % (21.0-51.0); MEAN CORPUSCULAR HEMOGLOBIN 27.6 pg (27.0-33.0); MEAN CORPUSCULAR HGB CONC 32.2 g/dL (32.0-36.0); MEAN CORPUSCULAR VOLUME 85.6 fL (79-99); MONOCYTES % (AUTO) 6.5 % (3.0-13.0); NEUTROPHILS % (AUTO) 78.5 % (40.0-77.0); PLATELET COUNT (AUTO) 341 K/uL (130-400); RED BLOOD CELL COUNT(AUTO) 4.93 MIL/uL (4.50-6.20); RED CELL DISTRIBUTION WIDTH 13.1 % (11.0-15.5)
[2021-04-15 06:17] LABS: ALBUMIN 2.4 g/dL (3.5-5.0); BILIRUBIN,TOTAL 0.4 mg/dL (0.2-1.0); CREATININE 0.8 mg/dL (0.5-1.5); POTASSIUM 3.9 mmol/L (3.5-5.1); TOTAL PROTEIN, SERUM 7.4 g/dL (6.0-8.3)
[2021-04-15] MEDS: INSULIN HUMULIN R 100 UNIT/ML 3ML SQ SCH ×7 (06:33→21:50)
[2021-04-15] MEDS ORDERED: GLYCOPYRROLATE 1 MG/5 ML SYRINGE ONE (08:49)
[2021-04-15] MEDS ORDERED: DEXAMETHASONE SOD PHOSPHATE 10MG/ML 1ML VIAL ONE (08:49)
[2021-04-15] MEDS ORDERED: MIDAZOLAM HCL 1 MG/ML 2ML VIAL ONE (08:49)
[2021-04-15] MEDS ORDERED: SUCCINYLCHOLINE 200MG/10ML SYR ONE (08:49)
[2021-04-15] MEDS ORDERED: LIDOCAINE PF 100MG/5ML (2%) SYRINGE 5ML ONE (08:49)
[2021-04-15] MEDS ORDERED: FENTANYL CITRATE PF 50 MCG/1 ML 2ML VIAL ONE (08:50)
[2021-04-15] MEDS ORDERED: ONDANSETRON 4MG INJ ONE (08:50)
[2021-04-15] MEDS ORDERED: NEOSTIGMINE 5MG/5ML SYR IV ONE (08:50)
[2021-04-15] MEDS ORDERED: PROPOFOL 10 MG/ML 20ML VIAL IV ONE ×2 (08:50→09:09)
[2021-04-15] MEDS ORDERED: ROCURONIUM 10MG/1ML SYR 10 MG/ML ML ONE (08:50)
[2021-04-15] MEDS: FAMOTIDINE 20MG TAB PO SCH ×2 (09:00→21:25)
[2021-04-15] MEDS ORDERED: METOPROLOL SUCCINATE 50 MG TAB.SR.24H PO SCH (09:00)
[2021-04-15] MEDS: ENOXAPARIN SODIUM 40 MG/0.4 ML SYRINGE SQ SCH (09:00)
[2021-04-15] MEDS ORDERED: LIDOCAINE HCL 1% 20 ML VIAL ONE (09:09)
[2021-04-15] MEDS ORDERED: BUPIVACAINE/PF 0.25% 30ML VIAL IJ ONE (09:09)
[2021-04-15] MEDS ORDERED: 0.9%NACL 1000ML 1,000 ML IV ONE (10:33)
[2021-04-15] MEDS: CITALOPRAM 20 MG TABLET PO SCH (13:17)
[2021-04-15] MEDS: LOSARTAN 100 MG TABLET PO SCH (13:18)
[2021-04-15] MEDS: ACETAMINOPHEN 325 MG TAB PO PRN (14:02)
[2021-04-15] MEDS: INSULIN GLARGINE 100 UNITS/ML 10 ML VIAL SQ SCH (21:51)
[2021-04-16] MEDS: CEFAZOLIN SODIUM 1 GM VIAL IVP SCH ×2 (01:54→10:05)
[2021-04-16 03:42] VITALS: BP 147/91
[2021-04-16 05:24] LABS: BASOPHILS % (AUTO) 0.6 % (0.0-5.0); EOSINOPHILS % (AUTO) 5.5 % (0.0-8.0); HEMATOCRIT 39.4 % (42-54); LYMPHOCYTES % (AUTO) 18.3 % (21.0-51.0); MEAN CORPUSCULAR VOLUME 84.7 fL (79-99); MONOCYTES % (AUTO) 8.6 % (3.0-13.0); NEUTROPHILS % (AUTO) 66.4 % (40.0-77.0); PLATELET COUNT (AUTO) 364 K/uL (130-400); RED BLOOD CELL COUNT(AUTO) 4.65 MIL/uL (4.50-6.20); RED CELL DISTRIBUTION WIDTH 13.2 % (11.0-15.5)
[2021-04-16 05:53] LABS: ALBUMIN 2.2 g/dL (3.5-5.0); BILIRUBIN,TOTAL 0.4 mg/dL (0.2-1.0); CREATININE 0.9 mg/dL (0.5-1.5); POTASSIUM 4.1 mmol/L (3.5-5.1); TOTAL PROTEIN, SERUM 6.9 g/dL (6.0-8.3)
[2021-04-16] MEDS: VANCOMYCIN 1.5GM/NS 250ML IV SCH ×2 (06:30)
[2021-04-16] MEDS: INSULIN HUMULIN R 100 UNIT/ML 3ML SQ SCH ×5 (06:34→16:30)
[2021-04-16 07:30] VITALS: BP 143/91
[2021-04-16] MEDS ORDERED: METOPROLOL SUCCINATE 50 MG TAB.SR.24H PO SCH (09:00)
[2021-04-16] MEDS: FAMOTIDINE 20MG TAB PO SCH (10:04)
[2021-04-16] MEDS: LOSARTAN 100 MG TABLET PO SCH (10:04)
[2021-04-16] MEDS: CITALOPRAM 20 MG TABLET PO SCH (10:04)
[2021-04-16] MEDS: ENOXAPARIN SODIUM 40 MG/0.4 ML SYRINGE SQ SCH (10:06)
[2021-04-16 11:00] VITALS: BP 135/77
[2021-04-16 16:00] VITALS: BP 146/87
[2021-04-16] MEDS ORDERED: DOXY-336 PO (17:20)
[2021-04-16] MEDS ORDERED: DOXYCYCLINE HYCLATE 100 MG TABLET PO SCH (21:00)
== END 2021-04-16 18:00 | disposition home or self-care (01) | DRG 854 ==
LOC: EDH 23:30 → EDHIP 23:31 → 3BH 04-12 08:26
PROVIDERS: ADMIT Internal Medicine; ATTEND Internal Medicine
PROC: 0KB50ZZ Excision of Right Shoulder Muscle, Open Approach (ICD-10-PCS; principal; 2021-04-15 09:30)
DX: A41.01 Sepsis due to Methicillin susceptible Staphylococcus aureus (principal); L02.212 Cutaneous abscess of back [any part, except buttock and flank]; L02.413 Cutaneous abscess of right upper limb; L03.312 Cellulitis of back [any part except buttock and flank]; Z68.42 Body mass index [BMI] 45.0-49.9, adult; I10 Essential (primary) hypertension; K21.9 Gastro-esophageal reflux disease without esophagitis; E66.01 Morbid (severe) obesity due to excess calories; E78.00 Pure hypercholesterolemia, unspecified; R73.9 Hyperglycemia, unspecified; F12.90 Cannabis use, unspecified, uncomplicated; F17.200 Nicotine dependence, unspecified, uncomplicated; Z20.822 Contact with and (suspected) exposure to COVID-19; Z79.4 Long term (current) use of insulin; Z88.8 Allergy status to other drugs, medicaments and biological substances; Z82.0 Family history of epilepsy and other diseases of the nervous system; Z82.3 Family history of stroke; Z82.5 Family history of asthma and other chronic lower respiratory diseases; Z83.3 Family history of diabetes mellitus; Z82.49 Family history of ischemic heart disease and other diseases of the circulatory system
CPT/HCPCS: 36415; 36600; 76705; 80048; 80053; 80202; 82803; 82948; 83036; 83605; 83735; 84100; 84145; 85025; 85027; 85651; 86140; 87040; 87070; 87076; 87077; 87186; 87205; 87635; G0378; J0330; J0360; J0690; J0696; J1100; J1650; J1815; J1885; J2001; J2250; J2405; J2543; J2704; J2710; J2765; J3010; J3370; J3475; J3490; J7030; J7040; J7050; J7120

== ENCOUNTER 2021-05-17 16:52 | Emergency (ER) | payer SELFPAY ==
[~2021-05-17] VITALS: Ht 172.7 cm; Wt 136.1 kg
[~2021-05-17 16:52] MED LIST changes: -CEFU500T67 PO; -CITA10TA7 PO; +CITA10TA89 PO; +DOXY-336 PO; +INSLAN SQ; -INSU3INS3 SQ; -INSU500I SQ; -METO5 PO
[2021-05-17 17:49] LABS: BASOPHILS % (AUTO) 0.8 % (0.0-5.0); EOSINOPHILS % (AUTO) 2.4 % (0.0-8.0); LYMPHOCYTES % (AUTO) 24.7 % (21.0-51.0); MEAN CORPUSCULAR HEMOGLOBIN 27.6 pg (27.0-33.0); MEAN CORPUSCULAR HGB CONC 32.8 g/dL (32.0-36.0); MEAN CORPUSCULAR VOLUME 84.2 fL (79-99); NEUTROPHILS % (AUTO) 64.8 % (40.0-77.0); PLATELET COUNT (AUTO) 306 K/uL (130-400); RED BLOOD CELL COUNT(AUTO) 4.75 MIL/uL (4.50-6.20); RED CELL DISTRIBUTION WIDTH 13.6 % (11.0-15.5); WHITE BLOOD COUNT (AUTO) 9.9 K/uL (4.8-10.8)
[2021-05-17 17:53] LABS: APPEARANCE,URINE Clear (CLEAR); BILIRUBIN,URINE Negative (NEGATIVE); COLOR,URINE Yellow (YELLOW); GLUCOSE, URINE (UA) >=1000 mg/dL (NEGATIVE); KETONES,URINE Negative (NEGATIVE); LEUKOCYTE ESTERASE ,URINE Negative (NEGATIVE); NITRATE,URINE Negative (NEGATIVE); OCCULT BLOOD,URINE Negative (NEGATIVE); PROTEIN,URINE Negative (NEGATIVE); UROBILINOGEN,URINE 0.2 mg/dL (0.2-1.0)
[2021-05-17 18:13] LABS: BILIRUBIN,TOTAL 0.5 mg/dL (0.2-1.0); CREATININE 1.1 mg/dL (0.5-1.5); POTASSIUM 4.7 mmol/L (3.5-5.1); THYROID STIMULATING HORMONE 1.82 uIU/mL (0.36-3.74); TOTAL PROTEIN, SERUM 7.9 g/dL (6.0-8.3)
[2021-05-17 18:24] LABS: BACTERIA,URINE Rare /HPF (None Seen); RBC,URINE 0-1 /HPF (0-1); WBC,URINE 0-1 /HPF (0-1)
[2021-05-17 18:25] LABS: SQUAMOUS EPITHELIAL CELL,UR Few /HPF (0-2)
[2021-05-17] MEDS ORDERED: INSULIN HUMULIN R 100 UNIT/ML 3ML IV STA (20:15)
[2021-05-17] MEDS ORDERED: LACTATED RINGERS 1000ML 1,500 ML IV ONE (20:30)
[2021-05-17] MEDS ORDERED: LACTATED RINGERS 1000ML 2,000 ML IV ONE (20:35)
[2021-05-17 21:24] VITALS: BP 151/90
== END 2021-05-17 21:54 | disposition home or self-care (01) ==
LOC: EDH 16:52
DX: E11.65 Type 2 diabetes mellitus with hyperglycemia (principal); N39.0 Urinary tract infection, site not specified; R00.0 Tachycardia, unspecified; E86.0 Dehydration; E66.01 Morbid (severe) obesity due to excess calories; I10 Essential (primary) hypertension; Z79.4 Long term (current) use of insulin; Z79.899 Other long term (current) drug therapy; Z88.8 Allergy status to other drugs, medicaments and biological substances; Z68.42 Body mass index [BMI] 45.0-49.9, adult
CPT/HCPCS: 36415; 80053; 81001; 84439; 84443; 85025; 93005; 96361; 96374; 99284; J7120